=== PATIENT | female | born 1960 | race Caucasian/White ===

== ENCOUNTER 2020-07-29 16:47 | Emergency (ER) | payer MEDICARE, MEDICAID, SELFPAY ==
--- NOTE | ~2020-07-29 | XR_ITS ---
XR hip RT min 2V DATE: 07/29/2020 20:12 INDICATION: Patient passed out and fell on right hip. Right hip injury, pain TECHNIQUE: AP and lateral views COMPARISON: None FINDINGS: There is moderate right hip osteoarthritis. No fracture, dislocation, avascular necrosis or bone destruction is detected. Normal alignment at the pubic symphysis and sacroiliac joints. IMPRESSION: Moderate right hip osteoarthritis Reviewed, dictated and finalized at location A.
--- NOTE | ~2020-07-29 | XR_ITS ---
XR chest 2V DATE: 07/29/2020 17:15 INDICATION: Cough, shortness of breath. History of COPD and hypertension. TECHNIQUE: AP and lateral views COMPARISON: 09/24/2016 two-view chest and CT pulmonary scan FINDINGS: Normal heart size. Mild aortic tortuosity. No hilar or mediastinal enlargement. No pulmonary infiltrate or consolidation, pleural effusion or pulmonary vascular congestion or pneumo thorax. IMPRESSION: No active cardiopulmonary disease Reviewed, dictated and finalized at location A.
[2020-07-29 16:51] VITALS: BP 123/86; PULSE 88; PULSE 96; RESP 14; O2SAT 98
--- NOTE | 2020-07-29 16:56 | ECG_ITS ---
Measurements Intervals [place] Rate: 92 P: 45 WA: 156 QRS: -39 QRSD: 93 T: 46 QT: 366 QTc: 453 Interpretive Statements SINUS RHYTHM LEFT AXIS DEVIATION DELAYED PRECORDIAL R/S TRANSITION BORDERLINE T WAVE ABNORMALITY- ANTERIOR LEADS BORDERLINE ECG Electronically Signed On 07-30-2020 15:28:31 CDT by Parag Bridges D.O.
[2020-07-29 17:31] LABS: Basophils Percent Auto 0.8 % (0.2-1.2); Eosinophils Absolute Auto 0.1 K/mm3 (0-0.3); Eosinophils Percent Auto 1.5 % (0-4.4); Hematocrit 36.9 % (37.0-47.0); Hemoglobin 11.6 g/dL (12.0-15.0); Immature Granulocyte Absolute 0.02 K/mm3 (0.00-0.031); Immature Granulocyte Percent A 0.4 % (0-0.5); Lymphocytes Absolute Auto 1.37 K/mm3 (0.9-3.2); Lymphocytes Percent Auto 26.3 % (18.3-44.2); Mean Corpuscular HGB Conc 31.4 g/dl (32-36); Mean Corpuscular Hemoglobin 26.7 pg (26-34); Mean Platelet Volume 10.4 fl (7.4-10.4); Monocytes Absolute Auto 0.4 K/mm3 (0.1-0.6); Monocytes Percent Auto 8.5 % (2.6-8.5); Neutrophils Absolute Auto 3.3 K/mm3 (1.3-6.7); Neutrophils Percent Auto 62.5 % (45.5-73.1); Platelet Count Result 248 k/mm3 (150-375); Red Blood Count 4.34 M/mm3 (4.2-5.4); Red Cell Distribution Width 14.5 % (11.5-14.5); White Blood Count 5.2 K/mm3 (4.5-10.0)
[2020-07-29 17:47] LABS: Anion Gap 12 mmol/L (8-16); Blood Urea Nitrogen 18 mg/dL (7-17); Calcium 9.7 mg/dL (8.4-10.2); Carbon Dioxide 20 mmol/L (22-30); Chloride 103 mmol/L (98-107); Estimated CRCL calculation 56 ml/min; Estimated Glomerular Filt Rate 51; Glucose 111 mg/dL (65-105); Potassium 3.9 mmol/L (3.4-5.0); Sodium 135 mmol/L (137-145)
--- NOTE | 2020-07-29 19:01 | PC.NURSE ---
Called Charleen dash, added on BNP and Trop I 190
[2020-07-29 19:23] LABS: NT Pro B Type Natriuretic Pept 30 pg/mL (5-100); Troponin I < 0.012 ng/mL (0.000-0.034)
--- NOTE | 2020-07-29 20:00 | ED.SOB ---
HPI - SOB/Dyspnea General Chief Complaint: Shortness of Breath/Dyspnea Stated Complaint: sob/dizzy/fall Time Seen by Provider: 07/29/20 17:14 Source: patient and family Mode of arrival: ambulatory Limitations: no limitations History of Present Illness HPI Narrative: 59-year-old female Here after falling and injuring her right hip Patient states that she was getting kind of short of breath She used her albuterol inhaler but it was ineffective and she started to get dizzy Possibly, she was hyperventilating This caused her to sustain a ground-level fall landing on her right hip which is now sore She is able to move it and bear weight Her breathing is much better now as well, as is her dizziness Related Data Allergies Allergy/AdvReac Type Severity Reaction Status Date / Time aspirin Allergy Unknown Hives / Verified 07/29/20 19:17 Red Face Penicillins Allergy Unknown Unknown Verified 07/29/20 19:17 sulfamethoxazole Allergy Unknown Unknown Verified 07/29/20 19:17 trimethoprim Allergy Unknown Unknown Verified 07/29/20 19:17 Review of Systems Review of Systems: All systems reviewed & are unremarkable except as noted in HPI and below Constitutional: Constitutional: Reports no additional constitutional complaints, Denies chills, Denies fever(s), Denies headache(s) and Reports weakness Eyes: Eyes: Reports no additional eye complaints and Denies change in vision ENT: Reports dizziness, Denies headache(s) and Denies sore throat Cardiovascular: Cardiovascular: Denies chest pain and Denies dyspnea Respiratory: Respiratory: Denies cough, Reports dyspnea and Reports wheezing Gastrointestinal: Gastrointestinal: Denies abdominal pain, Denies diarrhea and Denies vomiting Genitourinary: Genitourinary: Denies urinary frequency and Denies dysuria Musculoskeletal: Musculoskeletal: Denies deformity, Reports arthralgias, Reports joint swelling and Denies numbness Integumentary/Breasts: Skin/Breast: Denies rash and Denies wounds Neurologic: Reports dizziness, Denies headache(s), Denies focal weakness and Reports numbness Psychiatric: Psychiatric: Reports no additional psychiatric complaints Endocrine: Endocrine: Reports no additional endocrine complaints Hematologic/Lymphatic: Hematologic/Lymphatic: Reports no additional hematologic/lymphatic complaints Allergic/Immunologic: Allergic/Immunologic: Reports no additional allergic/immunologic complaints Exam Const: General: cooperative, no acute distress and alert Orientation/consciousness: patient oriented x3 (alert) HENMT: Head: normal to inspection, normocephalic, atraumatic, no contusions and no hematomas Ears: external ears normal General nose exam: no epistaxis Eyes: Conjunctivae: conjunctivae normal EOM: EOMs intact bilaterally Neck: Neck: normal visual inspection, supple and no JVD Resp: Effort & Inspection: normal respiratory effort and not labored Auscultation: clear to auscultation bilaterally, no wheezes and other (BS =) Cardio: Rate: regular rate Rhythm: regular rhythm Heart sounds: no murmurs GI: GI Palp: Yes Soft to palpation and No Tenderness to palpation present (GI) Skin: General skin exam: normal color and no rashes or lesions noted Neuro: General: patient oriented x3 (alert) and moves all extremities Speech: normal speech Extrem: General: normal to inspection and no pedal edema Other: Right hip, full range of motion, no deformity, no shortening, no bruises, mildly tender laterally over trochanter Psych: Affect: normal affect Course Vital Signs Vital signs: Vital Signs Pulse Rate 96 07/29/20 16:51 Respiratory Rate 14 07/29/20 16:51 Blood Pressure 123/86 07/29/20 16:51 Pulse Oximetry 98 07/29/20 16:51 Pulse Rate 103 H 07/29/20 20:33 Respiratory Rate 14 07/29/20 20:33 Blood Pressure 114/71 07/29/20 20:17 Pulse Oximetry 99 07/29/20 20:17 MDM - SOB/Dyspnea Lab Data Result diagrams: 07/29/20 17:2
[2020-07-29 20:17] VITALS: BP 114/71; PULSE 102; RESP 20; O2SAT 99
[2020-07-29 20:24] VITALS: PULSE 104; RESP 19
[2020-07-29] MEDS: ALBUTEROL SULFATE NEB 2.5 MG/0.5 ML INH 5 MG INHALATION (20:24)
[2020-07-29] MEDS: IPRATROPIUM BR 0.02% INH SOLN 0.5 MG/2.5 ML VIAL INHALATION (20:24)
[2020-07-29 20:33] VITALS: PULSE 103; RESP 14
[2020-07-29 22:14] VITALS: BP 106/74; PULSE 91; RESP 22; TEMP 36.9; O2SAT 97
== END 2020-07-29 22:15 | disposition home or self-care (01) ==
PROVIDERS: Emergency Medicine; Emergency Provider Emergency Medicine; PCP Family Medicine
DX: S70.01XA Contusion of right hip, initial encounter (principal); J44.1 Chronic obstructive pulmonary disease with (acute) exacerbation; R94.31 Abnormal electrocardiogram [ECG] [EKG]; W19.XXXA Unspecified fall, initial encounter
CPT/HCPCS: 36415; 71046; 73502; 80048; 83880; 84484; 85025; 93005; 94640; 96374; 99284; J1100

== ENCOUNTER 2020-09-04 13:42 | Outpatient (CLI) | payer MEDICARE, MEDICAID, SELFPAY ==
--- NOTE | ~2020-09-04 | CT_ITS ---
EXAMINATION: CT lung screening DATE: 09/04/2020 14:05 INDICATION: Personal history of tobacco dependence, prior smoker TECHNIQUE: Computed tomography (CT) of the chest was performed without intravenous contrast. The dose -length product (DLP) was 303.02 mGy-cm. Automated exposure control and iterative reconstruction tech [email or web address] were employed. COMPARISON: None FINDINGS: There is mild emphysema. No suspicious pulmonary nodules are identified. There is mild atel ectasis of the lower lobes. No pathologically enlarged thoracic lymph nodes are identified. The heart size is normal. Calcified coronary artery atherosclerosis is noted. There is moderate thoracic spond ylosis. IMPRESSION: 1. Lung-RADS category 1: Negative. Continue annual screening with noncontrast low-dose chest CT in 12 months. Reviewed, dictated and finalized at location A. IMPRESSION: 1. Lung-RADS category 1: Negative. Continue annual screening with noncontrast l ow-dose chest CT in 12 months.
== END 2020-09-04 13:43 | disposition home or self-care (01) ==
LOC: ANHIMG 13:43
PROVIDERS: PCP Internal Medicine; Visit Provider Internal Medicine
DX: J44.9 Chronic obstructive pulmonary disease, unspecified (principal); Z87.891 Personal history of nicotine dependence
CPT/HCPCS: 71271

== ENCOUNTER 2020-09-11 10:40 | Outpatient (CLI) | payer MEDICARE, MEDICAID, SELFPAY ==
[2020-09-11 11:12] LABS: Cholesterol 250 mg/dL (0-200); HDL Direct 45 mg/dL; Triglycerides 186 mg/dL (<150)
[2020-09-11 11:14] LABS: Hemoglobin A1C 6.1 % (<5.7)
[2020-09-11 11:24] LABS: LDL Cholesterol Direct 164 mg/dL
[2020-09-11 11:43] LABS: Thyroid Stimulating Hormone 0.402 uIU/mL (0.465-4.680)
[2020-09-11 11:45] LABS: Iron 54 ug/dL (37-170)
[2020-09-11 11:51] LABS: Percent Iron Saturation 11 % (20-50)
[2020-09-11 12:32] LABS: Creatinine Urine 123.5 mg/dL
[2020-09-11 12:35] LABS: MALB Creatinine Ratio 24.3 mg/g (0-30)
== END 2020-09-11 10:41 | disposition home or self-care (01) ==
LOC: ANHLAB 10:43
PROVIDERS: PCP Internal Medicine; Visit Provider Internal Medicine
DX: D64.9 Anemia, unspecified (principal); E55.9 Vitamin D deficiency, unspecified; J44.9 Chronic obstructive pulmonary disease, unspecified; R73.01 Impaired fasting glucose; Z78.0 Asymptomatic menopausal state; E78.2 Mixed hyperlipidemia
CPT/HCPCS: 36415; 80061; 82043; 82306; 82728; 83036; 83540; 83550; 84443

== ENCOUNTER 2020-10-12 10:49 | Outpatient (CLI) | payer MEDICARE, MEDICAID, SELFPAY ==
[2020-10-12 11:49] LABS: Thyroid Stimulating Hormone 0.285 uIU/mL (0.465-4.680)
[2020-10-12 11:51] LABS: Free T4 Free Thyroxine 0.94 ng/mL (0.78-2.19)
== END 2020-10-12 10:50 | disposition home or self-care (01) ==
LOC: ANHLAB 10:53
PROVIDERS: PCP Internal Medicine; Visit Provider Internal Medicine
DX: E78.5 Hyperlipidemia, unspecified (principal); R79.89 Other specified abnormal findings of blood chemistry
CPT/HCPCS: 36415; 84439; 84443

== ENCOUNTER 2020-10-24 11:04 | Outpatient (CLI) | payer MEDICARE, MEDICAID, SELFPAY ==
[2020-10-24 12:11] LABS: Basophils Percent Auto 0.6 % (0.2-1.2); Eosinophils Absolute Auto 0.1 K/mm3 (0-0.3); Hematocrit 41.8 % (37.0-47.0); Hemoglobin 13.3 g/dL (12.0-15.0); Immature Granulocyte Absolute 0.02 K/mm3 (0.00-0.031); Immature Granulocyte Percent A 0.4 % (0-0.5); Lymphocytes Absolute Auto 1.05 K/mm3 (0.9-3.2); Mean Corpuscular HGB Conc 31.8 g/dl (32-36); Mean Corpuscular Hemoglobin 28.4 pg (26-34); Mean Corpuscular Volume 89.3 fl (80-100); Mean Platelet Volume 11.1 fl (7.4-10.4); Monocytes Absolute Auto 0.4 K/mm3 (0.1-0.6); Monocytes Percent Auto 7.2 % (2.6-8.5); Neutrophils Absolute Auto 3.5 K/mm3 (1.3-6.7); Neutrophils Percent Auto 69.8 % (45.5-73.1); Platelet Count Result 214 k/mm3 (150-375); Red Blood Count 4.68 M/mm3 (4.2-5.4); Red Cell Distribution Width 17.3 % (11.5-14.5)
[2020-10-24 12:39] LABS: Iron 127 ug/dL (37-170)
[2020-10-24 15:00] LABS: Percent Iron Saturation 34 % (20-50)
== END 2020-10-24 11:05 | disposition home or self-care (01) ==
PROVIDERS: PCP Internal Medicine; Visit Provider Internal Medicine
DX: D50.9 Iron deficiency anemia, unspecified (principal)
CPT/HCPCS: 36415; 82728; 83540; 83550; 85025

== ENCOUNTER 2020-11-20 10:29 | Outpatient (CLI) | payer MEDICARE, MEDICAID, SELFPAY ==
--- NOTE | ~2020-11-20 | US_ITS ---
EXAMINATION: US thyroid DATE: 11/20/2020 10:57 INDICATION: Unspecified abnormal findings of blood chemistry. TECHNIQUE: Multiple ultrasound images of the thyroid were obtained. COMPARISON: None. FINDINGS: The right thyroid lobe measures 3.6 x 2.1 x 2.1 cm. The left thyroid lobe measures 3.3 x 2.3 x 2.0 c m. In the right thyroid lobe, there is an 11 mm solid, very hypoechoic, [id number]-[id number] nodule with smooth margin without echogenic foci (TI-RADS TR4). In the left thyroid lobe, there is a 10 mm solid, hypoechoic, mpvqy-ejlv-[id number] nodule with ill-defined margin without echogenic foci (TR4). There are m ultiple subcentimeter nodules in the thyroid. IMPRESSION: 1. Multinodular goiter. Thyroid ultrasound is recommended in one year. Reviewed, dictated and finalized at location A.
== END 2020-11-20 10:30 | disposition home or self-care (01) ==
LOC: ANHIMG 10:33
PROVIDERS: PCP Internal Medicine; Visit Provider Internal Medicine
DX: R79.89 Other specified abnormal findings of blood chemistry (principal); E04.2 Nontoxic multinodular goiter
CPT/HCPCS: 76536

== ENCOUNTER → 2020-11-22 09:12 | Outpatient (CLI) | payer MEDICARE, MEDICAID, SELFPAY ==
[2020-11-22 18:09] LABS: SARS-CoV-2 RNA PCR Negative
== END ==
PROVIDERS: PCP Internal Medicine; Visit Provider Internal Medicine
DX: R68.89 Other general symptoms and signs (principal); Z20.822 Contact with and (suspected) exposure to COVID-19
CPT/HCPCS: C9803; U0003; U0005

== ENCOUNTER → 2020-12-26 02:02 | Outpatient (CLI) | payer MEDICARE, MEDICAID, SELFPAY ==
[2020-12-26 10:57] LABS: Influenza Control Positive
[2020-12-26 18:47] LABS: SARS-CoV-2 RNA PCR Negative
== END ==
PROVIDERS: PCP Internal Medicine; Visit Provider Internal Medicine
DX: R68.89 Other general symptoms and signs (principal); Z20.822 Contact with and (suspected) exposure to COVID-19
CPT/HCPCS: 87804; C9803; U0003; U0005

== ENCOUNTER 2021-02-15 08:36 | Outpatient (CLI) | payer MEDICARE, MEDICAID, SELFPAY ==
[2021-02-15 09:20] LABS: Alanine Aminotransferase 15 U/L (4-35); Albumin Level 4.7 g/dL (3.5-5.1); Alkaline Phosphatase 74 U/L (38-126); Anion Gap 9 mmol/L (8-16); Aspartate Amino Transferase 25 U/L (14-36); Bilirubin,Total 1.3 mg/dL (0.2-1.3); Blood Urea Nitrogen 13 mg/dL (7-17); Carbon Dioxide 30 mmol/L (22-30); Chloride 100 mmol/L (98-107); Cholesterol 187 mg/dL (0-200); Estimated Glomerular Filt Rate 57; Glucose 117 mg/dL (65-110); HDL Direct 59 mg/dL; Potassium 4.2 mmol/L (3.4-5.0); Sodium 139 mmol/L (137-145); Triglycerides 169 mg/dL (<150)
[2021-02-15 09:30] LABS: Iron 87 ug/dL (37-170)
[2021-02-15 09:31] LABS: LDL Cholesterol Direct 96 mg/dL
[2021-02-15 09:38] LABS: Hemoglobin A1C 6.1 % (<5.7)
[2021-02-15 09:39] LABS: Creatinine Urine 112.9 mg/dL; Percent Iron Saturation 21 % (20-50)
[2021-02-15 09:44] LABS: MALB Creatinine Ratio 8.9 mg/g (0-30)
== END 2021-02-15 08:37 | disposition home or self-care (01) ==
PROVIDERS: PCP Internal Medicine; Visit Provider Internal Medicine
DX: E78.2 Mixed hyperlipidemia (principal); E11.9 Type 2 diabetes mellitus without complications; G25.81 Restless legs syndrome
CPT/HCPCS: 36415; 80053; 80061; 82043; 82728; 83036; 83540; 83550

== ENCOUNTER 2021-02-27 13:20 | Emergency (ER) | payer MEDICARE, MEDICAID, SELFPAY ==
--- NOTE | ~2021-02-27 | CT_ITS ---
EXAMINATION: CT hip RT wo con EXAM DATE: 02/27/2021 14:44 INDICATION: Acute on chronic right hip pain, remote hsx fall. TECHNIQUE: Spiral CT hip RT wo con was performed without contrast. Axial, coronal and sagittal imag es were reviewed. The dose-length product (DLP) for this examination was 217.63 mGy-cm. The exposur e was tailored according to patient size (auto mA exposure control), and iterative reconstruction ( IR) was used as additional dose reduction technique. Correlation is made to x-ray same date. FINDINGS: No acute right hip fracture. There is moderate right hip primary osteoarthritis. There is b and of sclerosis along the humeral head, appearance is consistent with stage II avascular necrosis, n o subchondral collapse. Soft tissue is unremarkable. IMPRESSION: 1. Right hip stage II avascular necrosis. 2. Moderate osteoarthritis. Reviewed, dictated and finalized at location . T PRESS OPERATOR
--- NOTE | ~2021-02-27 | XR_ITS ---
EXAMINATION: XR hip RT 2V w AP pelvis EXAM DATE: 02/27/2021 13:58 INDICATION: right hip pain since december, also pain when bearing weight . TECHNIQUE: Right hip frontal, 'frog leg' projections for interpretation. Frontal projection pelvis. Comparison is made to prior examination from 07/29/2020. FINDINGS: Smooth right hip femoral head contour, no radiographic evidence of avascular necrosis. The re is moderate symmetric bilateral hip primary osteoarthritis. There are no acute fractures or disloc ations identified. There is no subcutaneous gas. The soft tissue is unremarkable. There are no ra diopaque foreign bodies. IMPRESSION: 1. XR hip RT 2V w AP pelvis exam without acute osseous findings. 2. Moderate symmetric hip osteoarthritis. Reviewed, dictated and finalized at location G. D NUTRITION MANAGER
[2021-02-27 13:24] VITALS: BP 152/94; PULSE 86; RESP 18; TEMP 36.8; O2SAT 99
--- NOTE | 2021-02-27 13:48 | ED.GENADULT ---
HPI - General Adult General Chief complaint: Extremity Injury, Lower Stated complaint: hip pain Time Seen by Provider: 02/27/21 13:32 Source: patient and RN notes reviewed Limitations: no limitations History of Present Illness HPI narrative: 50-year-old female presenting to the [facility] for evaluation of acute on chronic right hip pain. Patient states she has had multiple falls but denies any acute injury. Patient states she had a fall back in December causing her to have right hip pain. Patient states that the pain has persisted. Patient has been taking Tylenol for pain control but states that it is not helping as much. Patient does have physical therapy scheduled for the right hip pain. Related Data Home Medications Medication Instructions Recorded Confirmed tramadol 50 mg tablet 50 mg PO Q4H PRN 08/21/20 01/29/21 mecobalamin (vitamin B12) 1,000 1,000 mcg SUBLINGUAL DAILY 10/24/20 01/29/21 mcg disintegrating tablet,sublingual buspirone 5 mg tablet 5 mg PO TID tablet 01/29/21 01/29/21 psyllium husk-calcium 1 gram-60 mg 1 cap PO DAILY 01/29/21 01/29/21 capsule escitalopram oxalate 10 mg tablet 10 mg PO DAILY 02/28/21 Allergies Allergy/AdvReac Type Severity Reaction Status Date / Time aspirin Allergy Unknown Hives / Verified 02/27/21 13:36 Red Face Penicillins Allergy Unknown Unknown Verified 02/27/21 13:36 sulfamethoxazole Allergy Unknown Unknown Verified 02/27/21 13:36 trimethoprim Allergy Unknown Unknown Verified 02/27/21 13:36 codeine Allergy Unknown Verified 02/27/21 13:37 ibuprofen Allergy Unknown Verified 02/27/21 13:37 Review of Systems Review of Systems: CONSTITUTIONAL: Denies fever, chills, or sweats. EYES: Denies visual changes, redness, or discharge. ENT: Denies rhinorrhea, congestion, sore throat, or otalgia. CARDIOVASCULAR: Denies chest pain, palpitations, or edema. RESPIRATORY: Denies cough or dyspnea. GASTROINTESTINAL: Denies abdominal pain, nausea, vomiting, or diarrhea. GENITOURINARY: Denies dysuria or hematuria. SKIN: Denies rash or itching. MUSCULOSKELETAL: Right hip pain NEUROLOGIC: Denies headache, numbness, or weakness. [facility] Past Medical History Medical History Allergies Anxiety Arthritis Cancer Chest pain Difficulty breathing Difficulty sleeping Essential hypertension Hair changes Head trauma High blood pressure High cholesterol Hot flashes Painful joint Skin change Snoring Family History Family History Father Cancer Mother Hypertension Grandparent Acute alcohol abuse Social History Social History (Updated 01/29/21 @ 10:41 by Jo Oliveira) Smoking packs per day: 4 Smoking cigarettes per day: 80.0 Years smoked: 14 Smoking pack-years: 56.00 Smoking status: Former smoker Tobacco type: cigarettes Second hand tobacco smoke exposure: No Smoking end date: 02/09/14 Alcohol intake: current Drinks per week: 2 Alcohol use details: social Substance use: never Substance use type: does not use Spiritual care concerns: No Exam Narrative: APPEARANCE: Well appearing, no pain, no distress, well-nourished. HEAD: normocephalic, atraumatic. THROAT: Pharynx clear, no exudate. NECK: Supple. No adenopathy, no masses. RESPIRATORY: Airway patent, respirations nonlabored. Clear to auscultation bilaterally, no rales, rhonchi, wheezing. CARDIOVASCULAR: Regular rate and rhythm without murmurs rubs or gallops. ABDOMINAL: Soft, nontender, nondistended, normal bowel sounds MUSCULOSKELETAL: Right hip tenderness to palpation NEURO: Alert. Cranial nerves II through XII intact. Good gait. Good coordination SKIN: Warm, dry. Normal Color Course Course Emergency Course: Patient was updated on the results of her imaging. CT did show avascular necrosis. Patient was encouraged to continue to follow-up with her primary care physician
[2021-02-27] MEDS: HYDROcodone/acetaminophen (*CRX) 5-325 MG TABLET 1 TAB PO (14:28)
[2021-02-27 16:33] VITALS: BP 149/90; PULSE 874; RESP 18; O2SAT 99
== END 2021-02-27 16:35 | disposition home or self-care (01) ==
PROVIDERS: Emergency Provider Emergency Medicine; PCP Internal Medicine
DX: M87.9 Osteonecrosis, unspecified (principal); F41.9 Anxiety disorder, unspecified; M19.90 Unspecified osteoarthritis, unspecified site; I10 Essential (primary) hypertension; E78.5 Hyperlipidemia, unspecified
CPT/HCPCS: 73502; 73700; 99284; A9270

== ENCOUNTER 2021-05-12 20:12 | Emergency (ER) | payer MEDICARE, MEDICAID, SELFPAY ==
--- NOTE | ~2021-05-12 | CT_ITS ---
EXAMINATION: CT chest abdomen pelvis wo con DATE: 05/12/2021 22:11 INDICATION: Upper abdominal pain radiating to the back. TECHNIQUE: Computed tomography (CT) of the chest, abdomen, and pelvis was performed without intraveno us contrast. Automated exposure control and iterative reconstruction technique were employed. The dos e-length product was 930.13 mGy-cm. COMPARISON: Chest CT 09/04/2020 FINDINGS: CHEST CT: There is mild emphysema. There is mild atelectasis bilaterally. A calcified left lung nodule and calc ified left hilar lymph nodes are consistent with old adenomatous disease. No pleural effusion. The he art size is normal. There are coronary artery calcifications. No pericardial effusion. There is mild thoracic spondylosis. ABDOMEN/PELVIS CT: The liver is normal. There are gallstones in the gallbladder, which is normal in size. Calcifications in the spleen are consistent with old granulomatous disease. The pancreas and adrenal glands are nor mal. Calcifications at the meredith of the kidneys are likely vascular. There is a 5.3 cm fusiform aneury sm of infrarenal aorta. There is a left inguinal hernia containing fat. There is an anastomosis in th e sigmoid colon. There are no dilated loops of bowel. There are no pathologically enlarged lymph node s. There is no free intraperitoneal fluid. There is osteonecrosis in right femoral head. There is mod erate lumbar spondylosis. IMPRESSION: 1. 5.3 cm fusiform aneurysm of infrarenal aorta. Surgical consultation is recommended. 2. Cholelithiasis. Reviewed, dictated and finalized at location A. IMPRESSION: 1. 5.3 cm fusiform aneurysm of infrarenal aorta. Surgical consultation is recom mended. 2. Cholelithiasis.
[2021-05-12 20:15] VITALS: BP 141/66; PULSE 73; RESP 20; TEMP 36.5; O2SAT 100
[2021-05-12 20:25] VITALS: PULSE 79; RESP 16; O2SAT 99
[2021-05-12 20:30] VITALS: BP 113/72; PULSE 78; RESP 17; O2SAT 93
[2021-05-12 20:40] LABS: Eosinophils Absolute Auto 0.1 K/mm3 (0-0.3); Hematocrit 39.8 % (37.0-47.0); Hemoglobin 13.5 g/dL (12.0-15.0); Immature Granulocyte Absolute 0.01 K/mm3 (0.00-0.031); Immature Granulocyte Percent A 0.2 % (0-0.5); Lymphocytes Absolute Auto 1.45 K/mm3 (0.9-3.2); Lymphocytes Percent Auto 35.5 % (18.3-44.2); Mean Corpuscular HGB Conc 33.9 g/dl (32-36); Mean Corpuscular Hemoglobin 31.5 pg (26-34); Mean Platelet Volume 10.4 fl (7.4-10.4); Monocytes Absolute Auto 0.5 K/mm3 (0.1-0.6); Neutrophils Absolute Auto 2.1 K/mm3 (1.3-6.7); Neutrophils Percent Auto 50.3 % (45.5-73.1); Platelet Count Result 162 k/mm3 (150-375); Red Blood Count 4.28 M/mm3 (4.2-5.4); Red Cell Distribution Width 12.4 % (11.5-14.5); White Blood Count 4.1 K/mm3 (4.5-10.0)
--- NOTE | 2021-05-12 20:40 | ED.ABDPAIN ---
HPI - Abdominal Pain General Chief Complaint: Abdominal Pain Stated Complaint: RUQ pain Time Seen by Provider: 05/12/21 20:21 Source: patient Mode of arrival: ambulatory Limitations: no limitations History of Present Illness HPI narrative: This is a 60 year old female that presents to the ER for RUQ abdominal pain present over the last couple of days. Reports the pain is sharp and intermittent in nature. It radiates to her back. She has known history of aortic aneurysm for which she is following with a surgeon at [place]. She is currently undergoing preoperative tests to have this repaired. She was told on 1 of those tests that she has some gallstones. Denies fever, chest pain, shortness of breath, vomiting, dysuria, or hematuria. Related Data Home Medications Medication Instructions Recorded Confirmed tramadol 50 mg tablet 50 mg PO Q4H PRN 08/21/20 05/01/21 mecobalamin (vitamin B12) 1,000 1,000 mcg SUBLINGUAL DAILY 10/24/20 05/01/21 mcg disintegrating tablet,sublingual buspirone 5 mg tablet 5 mg PO TID tablet 01/29/21 05/01/21 escitalopram oxalate 10 mg tablet 10 mg PO DAILY 02/28/21 05/01/21 Allergies Allergy/AdvReac Type Severity Reaction Status Date / Time aspirin Allergy Unknown Hives / Verified 05/12/21 20:14 Red Face Penicillins Allergy Unknown Unknown Verified 05/12/21 20:14 sulfamethoxazole Allergy Unknown Unknown Verified 05/12/21 20:14 trimethoprim Allergy Unknown Unknown Verified 05/12/21 20:14 codeine Allergy Unknown Verified 05/12/21 20:14 ibuprofen Allergy Unknown Verified 05/12/21 20:14 Review of Systems Review of Systems: CONSTITUTIONAL: Denies fever CARDIOVASCULAR: Denies chest pain RESPIRATORY: Denies dyspnea. GASTROINTESTINAL: Reports abdominal pain. Denies nausea, vomiting, or diarrhea. GENITOURINARY: Denies dysuria or hematuria. All systems reviewed & are unremarkable except as noted in HPI and below PMFSH Past Medical History Medical History (Updated 05/12/21 @ 22:46 by Katrina Dyer PA-C) AA (aortic aneurysm) Allergies Anxiety Arthritis Cancer Chest pain Difficulty breathing Difficulty sleeping Essential hypertension Hair changes Head trauma High blood pressure High cholesterol Hot flashes Painful joint Skin change Snoring Family History Family History Father Cancer Mother Hypertension Grandparent Acute alcohol abuse Social History Social History Smoking packs per day: 4 Smoking cigarettes per day: 80.0 Years smoked: 14 Smoking pack-years: 56.00 Tobacco type: cigarettes Second hand tobacco smoke exposure: No Smoking end date: 02/09/14 Alcohol intake: current Drinks per week: 2 Alcohol use details: social Substance use: never Substance use type: does not use Spiritual care concerns: No Exam Narrative: GENERAL: Well-appearing, well-nourished, and in no acute distress. HEAD: Normocephalic, atraumatic. EYES: EOMI. CHEST: Clear to auscultation. No respiratory distress. No wheezes rales or rhonchi HEART: Regular rate and rhythm. No murmur heard. Normal peripheral pulses. ABDOMEN: Soft, nondistended, normal active bowel sounds. Tender to palpation in the right upper quadrant, without guarding EXTREMITIES: Normal range of motion. No edema. SKIN: Warm, dry, no rash. NEURO: No focal deficits. Alert and oriented x3. PSYCH: Normal mood and affect Course Vital Signs Vital signs: Vital Signs Temperature 97.7 F 05/12/21 20:15 Pulse Rate 73 05/12/21 20:15 Respiratory Rate 20 05/12/21 20:15 Blood Pressure 141/66 H 05/12/21 20:15 Pulse Oximetry 100 05/12/21 20:15 Temperature 97.7 F 05/12/21 20:15 Pulse Rate 78 05/12/21 20:30 Respiratory Rate 17 05/12/21 20:30 Blood Pressure 113/72 05/12/21 20:30 Pulse Oximetry 93 05/12/21 20:30 MDM - Abdominal Pain MDM Narrative Medical
[2021-05-12 20:52] LABS: Alanine Aminotransferase 18 U/L (4-35); Albumin Level 4.6 g/dL (3.5-5.1); Alkaline Phosphatase 69 U/L (38-126); Anion Gap 4 mmol/L (8-16); Aspartate Amino Transferase 30 U/L (14-36); Bilirubin,Total 1.2 mg/dL (0.2-1.3); Blood Urea Nitrogen 16 mg/dL (7-17); Calcium 9.2 mg/dL (8.4-10.2); Carbon Dioxide 30 mmol/L (22-30); Chloride 103 mmol/L (98-107); Estimated CRCL calculation 57 ml/min; Estimated Glomerular Filt Rate 57; Glucose 87 mg/dL (65-110); Lipase 80 U/L (23-300); Potassium 4.1 mmol/L (3.4-5.0); Sodium 137 mmol/L (137-145)
[2021-05-12] MEDS: ONDANSETRON INJ 4 MG/2 ML VIAL IV PUSH (21:06)
[2021-05-12] MEDS: MORPHINE SULFATE (*CRX) 2 MG/ML INJ IV PUSH (21:06)
[2021-05-12 22:48] LABS: Add Urine Microscopic? YES; Appearance Urine Cloudy (Clear); Bacteria Urine Trace /hpf; Bilirubin Urine Negative (Negative); Blood Urine Negative (Negative); Color Urine Yellow (Yellow); Glucose Urine UA Negative (Negative); Ketones Urine Negative (Negative); Leukocyte Esterase Ur Trace LEU/UL (Negative); Mucus Urine Rare /lpf; Nitrate Urine Negative (Negative); Protein Urine Negative (Negative); RBC Urine 0-2 /hpf (0-2); Squamous Epithelial Cell Urine Rare /hpf (Few); Urobilinogen Urine Negative mg/dL (<2.0)
[2021-05-12 23:34] VITALS: BP 98/68; PULSE 88; RESP 14; O2SAT 95
== END 2021-05-12 23:36 | disposition home or self-care (01) ==
PROVIDERS: Physician Assistant; Emergency Provider Emergency Medicine; PCP Internal Medicine
DX: R10.11 Right upper quadrant pain (principal); I71.4 Abdominal aortic aneurysm, without rupture; I10 Essential (primary) hypertension; E78.00 Pure hypercholesterolemia, unspecified; M19.90 Unspecified osteoarthritis, unspecified site; F41.9 Anxiety disorder, unspecified; K80.20 Calculus of gallbladder without cholecystitis without obstruction
CPT/HCPCS: 36415; 71250; 74176; 80053; 81001; 83690; 85025; 87086; 96365; 96375; 99284; J0131; J2270; J2405

== ENCOUNTER 2021-05-23 00:45 | Day surgery (SDC) | payer MEDICARE, MEDICAID, SELFPAY ==
--- NOTE | 2021-05-20 10:10 | PC.NURSE ---
Report to the Outpatient Waiting Room, entrance under the green pavilion located off [facility], at time _1300 on date __05/23/21 . OR Time: __1500 . - You and your visitor will be asked a series of questions to screen for COVID 19 for your protection. - A mask is required within the hospital. Preoperative COVID Testing Requirements: No COVID Test needed if: (proof is required; if not received patient will have Rapid Test prior to entry) - Patient has received COVID Vaccine at least 14 days prior to procedure date or - Patient has positive COVID test result within last 90 days of surgery date. COVID Test needed if above criteria is not met If not COVID vaccinated a COVID test must be conducted within 72 hours of surgery and patient is asked to isolate self from time of testing until procedure. You will go to the [facility] for your COVID testing. The [facility] is located at the corner of [address] from [facility]. You will only be called if COVID results are positive and your surgeon may reschedule your elective surgery date. Patients may have clear liquids (water, carbonated beverages, clear teas, apple juice) until 3 hours prior to surgery with a maximum of 20 ounces. - No food from midnight until time of surgery - Infants may have breast milk until 4 hours before surgery, infant formula 6 hours prior to surgery. - Children will be allowed to drink immediately following surgery. If applicable, please bring a bottle or sippy cup to assist with drinking. Juice, water, soda, and popsicles are readily available. For infants on formula, please bring formula the day of surgery. Pacifiers are allowed. Take the following medications with a SIP of water the morning of surgery: __BUSPIRONE,ESCITALOPRAM, Medications to discontinue per physician __VITAMIN D3 AND VITAMIN B12__3 DAYS PRE OP Date to take last dose___05/19/21 Please no make-up, nail turkmen, hairspray, perfume, deodorant, or body powder the day of surgery. No jewelry (including any body piercings) or valuables the day of surgery, leave them at home. Please take a shower or bath the night before, or the morning of, surgery with an antibacterial soap. Wear comfortable, loose fitting clothing. Children are encouraged to wear pajamas. - Jewelry must be removed prior to entering the operating room. Rings and piercings that are not removed may be cut off. - The hospital will not accept responsibility for valuables. - Please leave all valuables, including medications, at home the day of surgery. If you are going home after surgery, a licensed cdl truck driver must drive you home. - NO public transportation without another adult. - We recommend that an adult stay with you for 24 hours following discharge. - We also recommend that you do not drive, make important decision, drink alcoholic beverages, or take any drugs that were not prescribed by your health care provider for at least 24 hours after your discharge time. For Pediatric surgeries, we recommend two adults accompany the child home (only one inside the building at this time). One visitor will be allowed to accompany the patient into the hospital. Patients visitor will be instructed to remain with patient at all times or leave the building. We will allow the visitor to come back to the postoperative area when patient is ready. Follow any additional instructions given to you from your surgeon. Telephone instructions given to __PATIENT and asked if any additional questions and then verbalized understanding. Patient advised to call surgeon office or pre surgery nurse liaison [phone] if any additional questions.
[2021-05-20 10:15] VITALS: BMI 29.8
[2021-05-23] VITALS (7 sets, daily range): BP systolic 114–148; BP diastolic 58–94; PULSE 79–92; RESP 14–20; TEMP 36.3–36.7; O2SAT 92–100; BMI 29.9
[2021-05-23] MEDS: LACTATED RINGERS 1,000 ML 30 ML IV CONT (14:00)
--- NOTE | 2021-05-23 14:28 | WPDANESEPPF ---
Anes - Initial Pre Proc Eval Procedure: Operation Date: 05/23/21 15:00 Proposed Procedures p Extraction of Twelve Teeth, Numbers Three Through Fourteen - Bienvenido Rose DMD Date/Time: 05/23/21 14:28 Surgeon: Bienvenido Rose DMD Pre Op Diagnosis: infected teeth, dental caries Patient Data Age: 60 Gender: F Height: 1.68 m Weight: 84.3 kg Last Vital Signs Temp 36.7 C 05/23/21 13:20 Pulse 88 05/23/21 13:20 Resp 20 05/23/21 13:20 BP 114/78 05/23/21 13:20 Pulse Ox 96 05/23/21 13:20 Allergies Allergy/AdvReac Type Severity Reaction Status Date / Time iohexol Allergy Intermediate Hives Verified 05/23/21 13:23 [From contrast - CT, X-RAY] aspirin Allergy Unknown Hives / Verified 05/23/21 13:22 Red Face Penicillins Allergy Unknown HIVES AND Verified 05/23/21 13:22 RASH sulfamethoxazole Allergy Unknown Unknown Verified 05/23/21 13:22 trimethoprim Allergy Unknown Rash Verified 05/23/21 13:22 codeine Allergy Hives Verified 05/23/21 13:22 ibuprofen Allergy Hives Verified 05/23/21 13:22 Home Medications Medication Instructions Recorded Confirmed Type tramadol 50 mg tablet 50 mg PO Q4H PRN 08/21/20 05/23/21 History lancets 23 gauge #100 ea 09/13/20 05/01/21 Rx blood sugar diagnostic #100 ea 09/21/20 05/01/21 Rx blood-glucose meter #1 ea 09/21/20 05/01/21 Rx lancets #100 ea 09/21/20 05/01/21 Rx mecobalamin (vitamin B12) 1,000 1,000 mcg PO DAILY 10/24/20 05/23/21 History mcg disintegrating tablet,sublingual omeprazole 20 mg capsule,delayed 20 mg PO DAILY #90 cap 01/11/21 05/23/21 Rx release lisinopril 20 mg tablet 20 mg PO DAILY #90 tablet 01/23/21 05/23/21 Rx buspirone 5 mg tablet 5 mg PO TID tablet 01/29/21 05/23/21 History escitalopram oxalate 10 mg tablet 10 mg PO DAILY 02/28/21 05/23/21 History hydrocodone 5 mg-acetaminophen 325 1 tablet PO Q6H PRN 30 Days #120 05/01/21 05/20/21 Rx mg tablet tablet rosuvastatin 20 mg tablet 20 mg PO DAILY #90 tablet 05/02/21 05/23/21 Rx cholecalciferol (vitamin D3) 25 mcg PO DAILY 05/20/21 05/23/21 History Patient hx anesthesia problems: none Family hx anesthesia problems: none Results Review: All pre-operative results and documents have been reviewed as part of the pre-operative evaluation. [facility] Past Medical History Medical History AA (aortic aneurysm) Allergies Anxiety Arthritis Cancer Chest pain Difficulty breathing Difficulty sleeping Essential hypertension Hair changes Head trauma High blood pressure High cholesterol Hot flashes Painful joint Skin change Snoring Family History Family History Father Cancer Mother Hypertension Grandparent Acute alcohol abuse Social History Social History Smoking packs per day: 4 Smoking cigarettes per day: 80.0 Years smoked: 14 Smoking pack-years: 56.00 Smoking status: Former smoker Tobacco type: cigarettes Second hand tobacco smoke exposure: No Smoking end date: 02/09/14 Alcohol intake: current Drinks per week: 2 Alcohol use details: 2 DRINKS PER MONTH Substance use: never Substance use type: does not use Living arrangements: alone Spiritual care concerns: No Anes - Eval Final PreProcedure Day of Procedure 05/23/21 14:28 Patient weight: obese Heart: regular rate and rhythm Lungs: clear to auscultation Airway: Mallampati scale class II and special considerations poor dentition Neurological: alert and oriented Last oral intake: >/= 8 hours ASA classification: IV Emergent: no Anesthetic plan: proceed Anesthesia type and monitoring: general ETT and standard monitoring Results Review: All pre-operative results and documents have been reviewed as part of the pre-operative evaluation. Informed Consent: The patient's anesthetic plan and its attendant risks and benefits
--- NOTE | 2021-05-23 15:10 | WPDHPUPDATE1 ---
History and Physical Update Update Date/Time: 05/23/21 15:10 History and Physical has been reviewed, including an updated exam of the patient. There are NO changes in the patient's condition. Risks, benefits, and alternatives have been discussed and questions answered. Patient agrees to proceed with procedure.
--- NOTE | 2021-05-23 15:10 | PM.IMHP ---
H&P: HPI History of Present Illness Date/Time: 05/23/21 15:10 c/o bad teeth Chief Complaint: bad teeth PMFSH Past Medical History Medical History AA (aortic aneurysm) Allergies Anxiety Arthritis Cancer Chest pain Difficulty breathing Difficulty sleeping Essential hypertension Hair changes Head trauma High blood pressure High cholesterol Hot flashes Painful joint Skin change Snoring Family History Family History Father Cancer Mother Hypertension Grandparent Acute alcohol abuse Social History Social History Smoking packs per day: 4 Smoking cigarettes per day: 80.0 Years smoked: 14 Smoking pack-years: 56.00 Smoking status: Former smoker Tobacco type: cigarettes Second hand tobacco smoke exposure: No Smoking end date: 02/09/14 Alcohol intake: current Drinks per week: 2 Alcohol use details: 2 DRINKS PER MONTH Substance use: never Substance use type: does not use Living arrangements: alone Spiritual care concerns: No Meds Home Medications and Allergies Home Medications Medication Instructions Recorded Confirmed Type tramadol 50 mg tablet 50 mg PO Q4H PRN 08/21/20 05/23/21 History lancets 23 gauge #100 ea 09/13/20 05/01/21 Rx blood sugar diagnostic #100 ea 09/21/20 05/01/21 Rx blood-glucose meter #1 ea 09/21/20 05/01/21 Rx lancets #100 ea 09/21/20 05/01/21 Rx mecobalamin (vitamin B12) 1,000 1,000 mcg PO DAILY 10/24/20 05/23/21 History mcg disintegrating tablet,sublingual omeprazole 20 mg capsule,delayed 20 mg PO DAILY #90 cap 01/11/21 05/23/21 Rx release lisinopril 20 mg tablet 20 mg PO DAILY #90 tablet 01/23/21 05/23/21 Rx buspirone 5 mg tablet 5 mg PO TID tablet 01/29/21 05/23/21 History escitalopram oxalate 10 mg tablet 10 mg PO DAILY 02/28/21 05/23/21 History hydrocodone 5 mg-acetaminophen 325 1 tablet PO Q6H PRN 30 Days #120 05/01/21 05/20/21 Rx mg tablet tablet rosuvastatin 20 mg tablet 20 mg PO DAILY #90 tablet 05/02/21 05/23/21 Rx cholecalciferol (vitamin D3) 25 mcg PO DAILY 05/20/21 05/23/21 History Allergies Allergy/AdvReac Type Severity Reaction Status Date / Time iohexol Allergy Intermediate Hives Verified 05/23/21 13:23 [From contrast - CT, X-RAY] aspirin Allergy Unknown Hives / Verified 05/23/21 13:22 Red Face Penicillins Allergy Unknown HIVES AND Verified 05/23/21 13:22 RASH sulfamethoxazole Allergy Unknown Unknown Verified 05/23/21 13:22 trimethoprim Allergy Unknown Rash Verified 05/23/21 13:22 codeine Allergy Hives Verified 05/23/21 13:22 ibuprofen Allergy Hives Verified 05/23/21 13:22 Vital Signs Vital Signs - 24 hr 05/23/21 13:20 Temperature 36.7 C Pulse Rate 88 Respiratory Rate 20 Blood Pressure 114/78 Pulse Oximetry 96 Assessment and Plan Assessment and plan (1) Non-restorable tooth: Code(s): K08.89 - Other specified disorders of teeth and supporting structures Status: Acute Assessment and Plan: extract #3-14
[2021-05-23] MEDS: ceFAZolin 2 GM/D5W 50 ML 2 GM/50 ML BAG IVPB (15:14)
[2021-05-23] MEDS: OXYMETAZOLINE HCL 0.05% NAS 15 ML BTL (*BKC) 1 SPRAY NASAL (15:20)
[2021-05-23] MEDS: LIDOCAINE 2%-EPI (FOR DENTAL BLOCK) 1.7 ML CARTRIDGE INFILTRATE (15:41)
--- NOTE | 2021-05-23 15:44 | P.OPB_ITS ---
Procedure Note - Brief Procedure Note - Brief Date of procedure: 05/23/21 Pre-op diagnosis: infected teeth, dental caries Surgeon: Bienvenido Rose DMD Preoperative diagnosis non restore full dentition and gingival hypertrophy anterior mandible. Postop diagnosis same. Procedures surgical removal of teeth numbers 3 through 15. gingival plasty anterior mandible. Complications none. Estimated blood loss 10cc. General anesthesia and 5cc of 2% lidocaine with 100,000 epinephrine.Patient encountered in the operating room under the care of the Anesthesia Service to induce general anesthetic. Patient was draped in the usual manner for an intraoral surgical procedure. Local anesthetic administered. Oral cavity suctioned free of debris and throat pack placed. Fifteen blade used to make a sulcular incision in the maxilla. A full- thickness flap was elevated to the buccal. All teeth removed using elevator and forceps technique without complication. Minimal ostectomy was completed. Alveolar plasty was completed using rongeur. Gingival tissues reapproximated using 4 0 chromic gut suture in icontinuous fashion. In the midline of the anterior mandible the excess gingival tissue was excised with a 15 blade. Oral cavity suctioned free of debris and throat pack was removed. Gauze packs placed. Care the patient was turned to the anesthesia service who extubated the patient transferred recovery in stable condition.
== END 2021-05-23 17:30 | disposition home or self-care (01) ==
PROVIDERS: PCP Internal Medicine; Visit Provider Dentist
PROC: (CPT 41899; principal; 2021-05-23 15:00)
DX: K02.9 Dental caries, unspecified (principal); K08.89 Other specified disorders of teeth and supporting structures; I10 Essential (primary) hypertension; E78.00 Pure hypercholesterolemia, unspecified; F41.9 Anxiety disorder, unspecified; I71.4 Abdominal aortic aneurysm, without rupture; E66.9 Obesity, unspecified; Z68.30 Body mass index [BMI] 30.0-30.9, adult
CPT/HCPCS: D7240 ×13; A9270; J0330; J0690; J1100; J2405; J2704; J7120

== ENCOUNTER 2021-05-29 09:23 | Outpatient (CLI) | payer MEDICARE, MEDICAID, SELFPAY ==
--- NOTE | ~2021-05-29 | MM_ITS ---
EXAMINATION: MM screening tico BI w gary HISTORY: Screening mammogram TECHNIQUE: Craniocaudal and mediolateral oblique 3-D tomosynthesis images were obtained and synthetic 2-D images were generated. CAD analysis was submitted and interpreted. COMPARISON: No prior mammogram is available for comparison at this institution. BREAST PARENCHYMAL COMPOSITION: There are scattered areas of fibroglandular density. FINDINGS: Electronic monitor device is noted in the left. Occasional bilateral benign calcifications. There is no evidence of suspicious mass, calcification, o r architectural distortion to suggest malignancy in either breast. There has been no suspicious inter shoaib change. IMPRESSION: 1. No mammographic evidence of malignancy. 2. Recommend routine screening mammography in one year. BI-RADS Category 1: Negative Reviewed, dictated and finalized at location [facility].
== END 2021-05-29 09:24 | disposition home or self-care (01) ==
LOC: ANHIMG 09:24
PROVIDERS: PCP Internal Medicine; Visit Provider Internal Medicine
DX: Z12.31 Encounter for screening mammogram for malignant neoplasm of breast (principal)
CPT/HCPCS: 77063; 77067

== ENCOUNTER 2021-06-27 10:06 | Outpatient (CLI) | payer MEDICARE, MEDICAID, SELFPAY ==
--- NOTE | ~2021-06-27 | XR_ITS ---
EXAMINATION: XR shoulder LT min 2V INDICATION: Left shoulder pain TECHNIQUE: Four views of the left shoulder are submitted. COMPARISON: 07/29/2020 FINDINGS: Normal alignment. No fracture. There is moderate glenohumeral joint osteoarthritis. The acr omioclavicular joint is unremarkable. Soft tissues are unremarkable. IMPRESSION: 1. Moderate glenohumeral joint osteoarthritis without acute osseous abnormality. Reviewed, dictated and finalized at location [facility]. IMPRESSION: 1. Moderate glenohumeral joint osteoarthritis without acute osseous abnormality .
== END 2021-06-27 10:07 | disposition home or self-care (01) ==
PROVIDERS: PCP Internal Medicine; Visit Provider Internal Medicine
DX: M19.012 Primary osteoarthritis, left shoulder (principal)
CPT/HCPCS: 73030

== ENCOUNTER 2021-07-06 10:58 | Emergency (ER) | payer MEDICARE, MEDICAID, SELFPAY ==
--- NOTE | ~2021-07-06 | CT_ITS ---
EXAMINATION: CT brain wo con DATE: 07/06/2021 11:41 INDICATION: Transient confusion, alteration of awareness TECHNIQUE: Computed tomography (CT) of the head was performed without intravenous contrast. The mA wa s adjusted according to patient size. Iterative reconstruction technique was employed. Exam dose: 52 9.67 mGy-cm total exam DLP. COMPARISON: None FINDINGS: No intracranial mass lesion or hemorrhage. Small left basal ganglia chronic lacunar infarct s. Bilateral carotid siphon internal carotid artery calcifications. There is nonspecific diminished attenuation cerebral white matter, likely due to chronic small vessel ischemic changes. No intracranial mass lesion or hemorrhage, midline shift or mass effect. No subdural or epidural hematoma. No fracture or bone destruction of the cranial vault. The included mastoid air cells and paranasal si nuses are normally developed and aerated. IMPRESSION: Cerebral atherosclerosis and chronic small vessel ischemic changes of the cerebral white matter Left basal ganglia chronic lacunar infarcts No acute intracranial finding Reviewed, dictated and finalized at [facility]. Reviewed, dictated and finalized at location [facility].
--- NOTE | ~2021-07-06 | XR_ITS ---
XR chest 2V DATE: 07/06/2021 13:00 INDICATION: Abnormal EKG. Previous smoker. Confusion. TECHNIQUE: PA and lateral views COMPARISON: CTA chest abdomen pelvis FINDINGS: Normal heart size. Implanted left anterior chest wall machine quilt stuffer device. No hilar or m ediastinal enlargement. No pulmonary infiltrate or consolidation, pleural effusion or pulmonary vascu lar congestion or pneumothorax. IMPRESSION: No active cardiopulmonary disease Reviewed, dictated and finalized at location [facility].
[2021-07-06 11:04] VITALS: BP 115/62; PULSE 91; RESP 14; TEMP 36.5; O2SAT 96
[2021-07-06 11:15] VITALS: PULSE 90
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
[2021-07-06 11:30] VITALS: BP 126/62; PULSE 90; RESP 21; O2SAT 94
--- NOTE | 2021-07-06 11:30 | PC.NURSE ---
Pt to CT scan via stretcher at this time.
--- NOTE | 2021-07-06 11:37 | ECG_ITS ---
Measurements Intervals [place] Rate: 88 P: 39 [place]: 141 QRS: -33 QRSD: 92 T: 22 QT: 365 QTc: 444 Interpretive Statements SINUS RHYTHM LEFT AXIS DEVIATION POOR R WAVE PROGRESSION, ANTERIOR LEADS BORDERLINE T WAVE ABNORMALITY- ANTEROLATERAL LEADS BASELINE ARTIFACT- I, III, AVL BORDERLINE ECG Electronically Signed On 07-06-2021 16:01:17 CDT by Parag Bridges D.O.
[2021-07-06 11:56] LABS: Basophils Percent Auto 0.4 % (0.2-1.2); Eosinophils Absolute Auto 0.1 K/mm3 (0-0.3); Eosinophils Percent Auto 2.9 % (0-4.4); Hematocrit 36.3 % (37.0-47.0); Hemoglobin 12.2 g/dL (12.0-15.0); Immature Granulocyte Absolute 0.01 K/mm3 (0.00-0.031); Immature Granulocyte Percent A 0.4 % (0-0.5); Lymphocytes Absolute Auto 0.83 K/mm3 (0.9-3.2); Lymphocytes Percent Auto 30.5 % (18.3-44.2); Mean Corpuscular HGB Conc 33.6 g/dl (32-36); Mean Corpuscular Hemoglobin 31.4 pg (26-34); Mean Corpuscular Volume 93.3 fl (80-100); Mean Platelet Volume 10.2 fl (7.4-10.4); Monocytes Absolute Auto 0.3 K/mm3 (0.1-0.6); Monocytes Percent Auto 9.9 % (2.6-8.5); Neutrophils Absolute Auto 1.5 K/mm3 (1.3-6.7); Neutrophils Percent Auto 55.9 % (45.5-73.1); Platelet Count Result 148 k/mm3 (150-375); Red Blood Count 3.89 M/mm3 (4.2-5.4); Red Cell Distribution Width 12.8 % (11.5-14.5); White Blood Count 2.7 K/mm3 (4.5-10.0)
[2021-07-06 12:00] LABS: Appearance Urine Clear (Clear); Bilirubin Urine Negative (Negative); Blood Urine Negative (Negative); Color Urine Yellow (Yellow); Glucose Urine UA Negative (Negative); Ketones Urine Negative (Negative); Leukocyte Esterase Ur Negative LEU/UL (Negative); Nitrate Urine Negative (Negative); Protein Urine Negative (Negative); Urobilinogen Urine 0.2 mg/dL (<2.0)
[2021-07-06 12:07] LABS: Alanine Aminotransferase 35 U/L (6-35); Albumin Level 3.9 g/dL (3.5-5.1); Alkaline Phosphatase 71 U/L (38-126); Anion Gap 8 mmol/L (8-16); Aspartate Amino Transferase 31 U/L (14-36); Bilirubin,Total 1.5 mg/dL (0.2-1.3); Blood Urea Nitrogen 16 mg/dL (7-17); Carbon Dioxide 26 mmol/L (22-30); Chloride 104 mmol/L (98-107); Estimated CRCL calculation 81 ml/min; Estimated Glomerular Filt Rate > 60; Glucose 135 mg/dL (65-110); Potassium 3.8 mmol/L (3.4-5.0); Sodium 138 mmol/L (137-145)
[2021-07-06 12:11] LABS: Add Urine Microscopic? NO
[2021-07-06 12:20] LABS: Troponin I < 0.012 ng/mL (0.000-0.034)
[2021-07-06 13:22] VITALS: BP 136/88; PULSE 93; RESP 17; O2SAT 95
== END 2021-07-06 13:25 | disposition home or self-care (01) ==
PROVIDERS: Physician Assistant; Emergency Provider Emergency Medicine; PCP Internal Medicine
DX: D69.6 Thrombocytopenia, unspecified (principal); D64.9 Anemia, unspecified; D72.819 Decreased white blood cell count, unspecified; I10 Essential (primary) hypertension; E11.9 Type 2 diabetes mellitus without complications; E78.5 Hyperlipidemia, unspecified; F41.9 Anxiety disorder, unspecified; M19.90 Unspecified osteoarthritis, unspecified site; Z87.891 Personal history of nicotine dependence; I67.2 Cerebral atherosclerosis; R94.31 Abnormal electrocardiogram [ECG] [EKG]
CPT/HCPCS: 36415; 70450; 71046; 80053; 81003; 84484; 85025; 93005; 99284

== ENCOUNTER 2021-07-10 08:37 | Outpatient (CLI) | payer MEDICARE, MEDICAID, SELFPAY ==
[2021-07-10 08:58] LABS: Basophils Percent Auto 0.3 % (0.2-1.2); Eosinophils Absolute Auto 0.1 K/mm3 (0-0.3); Eosinophils Percent Auto 3.9 % (0-4.4); Hematocrit 37.1 % (37.0-47.0); Hemoglobin 12.7 g/dL (12.0-15.0); Immature Granulocyte Absolute 0.01 K/mm3 (0.00-0.031); Immature Granulocyte Percent A 0.3 % (0-0.5); Lymphocytes Absolute Auto 1.03 K/mm3 (0.9-3.2); Lymphocytes Percent Auto 28.8 % (18.3-44.2); Mean Corpuscular HGB Conc 34.2 g/dl (32-36); Mean Corpuscular Hemoglobin 31.4 pg (26-34); Mean Corpuscular Volume 91.8 fl (80-100); Monocytes Absolute Auto 0.4 K/mm3 (0.1-0.6); Neutrophils Percent Auto 54.7 % (45.5-73.1); Platelet Count Result 207 k/mm3 (150-375); Red Blood Count 4.04 M/mm3 (4.2-5.4); Red Cell Distribution Width 12.9 % (11.5-14.5); White Blood Count 3.6 K/mm3 (4.5-10.0)
[2021-07-10 09:06] LABS: Lactate Dehydrogenase 470 U/L (313-618)
[2021-07-10 09:39] LABS: Iron 84 ug/dL (37-170)
[2021-07-10 09:48] LABS: Percent Iron Saturation 21 % (20-50)
[2021-07-10 10:43] LABS: Folic Acid 7.6 ng/mL (2.76->20); Vitamin B12 > 1000.0 pg/mL (239-931)
== END 2021-07-10 08:38 | disposition home or self-care (01) ==
LOC: ANHLAB 08:37
PROVIDERS: PCP Internal Medicine; Visit Provider Internal Medicine
DX: D70.9 Neutropenia, unspecified (principal); Z87.891 Personal history of nicotine dependence; D50.9 Iron deficiency anemia, unspecified
CPT/HCPCS: 36415; 82607; 82728; 82746; 83540; 83550; 83615; 85025

== ENCOUNTER 2021-07-26 07:45 | Outpatient (CLI) | payer MEDICARE, MEDICAID, SELFPAY ==
--- NOTE | 2021-08-19 09:35 | WPDSLEEPSTUD ---
Sleep Study Date of Study: 07/26/21 Ordering Provider: Dayday Bain APRN Interpreting Physician: Jillian Brewer MD Sleep Study Type: Split Polysomnogram Height: 1.68 m Weight: 81.647 kg Body Mass Index: 29.0 Neck Circumference (inches): 16.5 [place]: 1 Reason for Sleep Study History of obstructive sleep apnea, needs to be re-tested Sleep History Edda Paulson is a 60 year old female With a history of obstructive sleep apnea on a sleep test in 2018, apnea-hypopnea index was 5.8. She has been on CPAP 7 cm with poor compliance because she says she cannot tolerate the CPAP. She wanted to be retested. She had a prior sleep test at [facility] and she had a CPAP machine. There is a family history with her brother using CPAP. She does not awaken from sleep feeling short of breath and she does not awaken at night with heartburn, belching or coughing. She rarely snores. She never snores loudly enough that others complain. She rarely has trouble sleeping with a cold. She does not wake up gasping for breath at night. She does not have breathing problems at night observed by others. She rarely sweats excessively night. She does not notice her heart pounding or beating irregularly at night. She does not fall asleep during the day and does not fall asleep involuntarily. She does not fall asleep while driving. She does not have loss of muscle tone with strong emotion. She does not have daytime difficulties due to excessive sleepiness. She does not feel paralyzed on waking or falling asleep. She does not have vivid dreamlike scenes upon awakening or falling asleep. She does not feel afraid to go to sleep. She rarely has nightmares. She rarely remembers her dreams. She rarely has racing thoughts. She frequently feels sad or depressed. She constantly has anxiety. She rarely has muscular tension. She constantly notices parts of her body jerking and she again attributes this to a stroke. She jerks at night, does not kick at night. According to her questionnaire. She does not have crawling and aching feelings in her legs. She does not have any kind of leg pain at night. She does not have morning jaw pain. She does not grind her teeth during sleep. She constantly is bothered by the pain during the day and awakened by pain at night. She does not wake up feeling stiff in the morning. She frequently wakes up with sore achy muscles and pain in the neck and spine. She has depression. She takes omeprazole. She has difficult family issues right now. Normal bedtime is between 9:00 p.m. and 10:00 p.m. falling asleep within an hour, waking every 1 or 2 hours to go to the kitchen get a snack use or laptop sometimes goes to the bathroom. She wakes the morning between 6 and 7:00 a.m.. Her weekend schedule is the same. She estimates getting between 3 and 4 hours of sleep at night. She does not take naps in the afternoon or evening. A short nap may be refreshing. She wakes feeling refreshed often. Habits: Tobacco quit 2014. Caffeine 3 servings a day. Alcohol 2 or 3 in a month, infrequently. No recreational drugs. [facility] Past Medical History Medical History AA (aortic aneurysm) Allergies Anxiety Arthritis Cancer Chest pain Difficulty breathing Difficulty sleeping Essential hypertension Hair changes Head trauma High blood pressure High cholesterol Hot flashes Painful joint Skin change Snoring Family History Family History Father Cancer Mother Hypertension Grandparent Acute alcohol abuse Social History Social History Smoking packs per day: 4 Smoking cigarettes per day: 80.0 Years smoked: 14 Smoking pack-years: 56.00 Smoking status: Former smoker Tobacco type: cigarettes Second hand tobacco smoke exposure: No Smoking end date:
[2021-08-21 12:01] VITALS: BMI 29.0
--- NOTE | 2022-01-07 12:55 | SLEEP ---
pt stated she is changed to Dr Jefferson. she called the md office several x's and could not get help.
== END 2021-07-27 06:47 | disposition home or self-care (01) ==
LOC: ANHCSM 07:49
PROVIDERS: PCP Family Medicine Sports Medicine; Visit Provider Nurse Practitioner Family
DX: G47.30 Sleep apnea, unspecified (principal); G47.33 Obstructive sleep apnea (adult) (pediatric); G25.81 Restless legs syndrome; G47.61 Periodic limb movement disorder
CPT/HCPCS: 95811

== ENCOUNTER 2021-08-07 09:25 | Emergency (ER) | payer MEDICARE, MEDICAID, SELFPAY ==
--- NOTE | ~2021-08-07 | US_ITS ---
EXAMINATION: US abdomen limited DATE: 08/07/2021 12:19 INDICATION: Right upper quadrant pain TECHNIQUE: Multiple grayscale and Doppler ultrasound images of the abdomen were obtained. COMPARISON: CT from today FINDINGS: The head, body, and tail of the pancreas are normal. The liver demonstrates increased echog enicity, heterogenous echotexture, and decreased through transmission. No surface nodularity. Normal hepatopetal flow in the main portal vein. Stones are present in the nondistended gallbladder. There i s no gallbladder wall thickening or pericholecystic fluid. The normal common bile duct measures 2 mm. There was no sonographic Robles sign. IMPRESSION: 1. Cholelithiasis without evidence of cholecystitis. 2. Diffuse hepatic steatosis. Reviewed, dictated and finalized at location [facility].
--- NOTE | ~2021-08-07 | CT_ITS ---
EXAMINATION: CT chest abdomen pelvis wo con DATE: 08/07/2021 10:08 INDICATION: Left chest and left lower quadrant pain TECHNIQUE: Transaxial computed tomographic images of the chest, abdomen, and pelvis were obtained wit hout intravenous contrast. The dose-length product (DLP) was 894.51 mGy-cm. Automated exposure contro l and iterative reconstruction technique were employed. COMPARISON: 05/12/2021 FINDINGS: CHEST CT: The lungs are free of acute opacities. There is mild emphysema. No pleural effusion or pneumothorax. Calcified pulmonary nodules and calcified left hilar lymph nodes are consistent with old granulomatou s disease. Mild atelectasis. No pathologically enlarged thoracic lymph nodes are identified. The hear t size is normal. A cardiac monitoring device is implanted in the medial subcutaneous tissues of the left anterior chest wall. Calcified coronary artery atherosclerosis is noted. There is mild thoracic spondylosis. ABDOMEN/PELVIS CT: Punctate calcifications in an otherwise normal spleen likely represent healed granulomatous disease. Stones are present in the nondistended gallbladder. The liver is diffusely low in attenuation when co mpared with the spleen, consistent with hepatic steatosis. The pancreas and adrenal glands are normal . Vascular calcifications are noted in the otherwise normal kidneys. There is a stable 5.3 cm fusifor m infrarenal abdominal aortic aneurysm. No pathologically enlarged abdominal or pelvic lymph nodes ar e identified. There is no free intraperitoneal gas or evidence of bowel obstruction. A surgical anast omosis is again noted in the sigmoid colon. There are bilateral inguinal hernias containing fat. Ther e is moderate lumbar spondylosis. IMPRESSION: 1. No CT correlate for the patient's symptoms. 2. Stable 5.3 cm fusiform infrarenal abdominal aortic aneurysm. 3. Cholelithiasis without evidence of cholecystitis. Reviewed, dictated and finalized at location [facility].
--- NOTE | ~2021-08-07 | XR_ITS ---
XR chest 2V DATE: 08/07/2021 09:53 INDICATION: Chest and abdominal pain TECHNIQUE: PA and lateral views COMPARISON: 07/06/2021 2 view chest FINDINGS: Electronic monitor device in the lower medial anterior left chest. Normal heart size. There is aortic tortuosity. No hilar or mediastinal enlargement. No pulmonary infiltrate or consolidation, pleural effusion or pulmonary vascular congestion or pneumo thorax is detected. Osteopenia. IMPRESSION: No active cardiopulmonary disease Reviewed, dictated and finalized at location [facility].
[2021-08-07 09:30] VITALS: BP 148/73; PULSE 75; RESP 17; TEMP 36.9; O2SAT 100
--- NOTE | 2021-08-07 09:34 | ECG_ITS ---
Measurements Intervals [place] Rate: 70 P: 48 [place]: 141 QRS: -22 QRSD: 94 T: 29 QT: 369 QTc: 399 Interpretive Statements SINUS RHYTHM BORDERLINE LEFT AXIS DEVIATION [QRS AXIS < -20] NONSPECIFIC T-WAVE ABNORMALITY COMPARED TO ECG 07/06/2021 12:12:27 NO SIGNIFICANT CHANGE Electronically Signed On 08-07-2021 12:45:11 CDT by Tamela Bland M.D.
[2021-08-07 09:35] VITALS: PULSE 79
--- NOTE | 2021-08-07 09:43 | ED.CHESTPAIN ---
HPI - Chest Pain General Chief Complaint: Chest Pain <KYLE Samayoa Last Filed: 08/07/21 17:47> Stated Complaint: AAA pain , was supposed to have sx 07/18 <KYLE Samayoa Last Filed: 08/07/21 17:47> Time Seen by Provider: 08/07/21 09:31 <KYLE Samayoa Last Filed: 08/07/21 17:47> History of Present Illness HPI narrative: Patient is a 60-year-old female with a history of 5.5 cm infrarenal AAA for evaluation of left upper abdominal pain and left lower chest pain.She states the pain began as a dull achy type pain about 3 days ago, but has increased in nature. Given the longevity of the pain, she called her primary care provider, who recommended ED evaluation. Patient had surgery scheduled earlier this month for repair of her aneurysm, although the surgery was delayed due to an episode where she was confused. At that time she was evaluated in the emergency department by me, her work-up was largely unremarkable aside from slightly neutropenia, which has since improved. Denies shortness of breath, nausea, vomiting, weakness, fevers, chills, diarrhea, constipation. <KYLE Samayoa Last Filed: 08/07/21 17:47> Related Data Home Medications: Home Medications Medication Instructions Recorded Confirmed buspirone 5 mg tablet 5 mg PO TID 01/29/21 05/23/21 cholecalciferol (vitamin D3) 25 25 mcg PO DAILY 05/20/21 05/23/21 mcg (1,000 unit) tablet <KYLE Samayoa Last Filed: 08/07/21 17:47> Allergies/Adverse Reactions: Allergies Allergy/AdvReac Type Severity Reaction Status Date / Time iohexol Allergy Intermediate Hives Verified 07/10/21 07:40 [From contrast - CT, X-RAY] aspirin Allergy Unknown Hives / Verified 07/10/21 07:40 Red Face Penicillins Allergy Unknown HIVES AND Verified 07/10/21 07:40 RASH sulfamethoxazole Allergy Unknown Unknown Verified 07/10/21 07:40 trimethoprim Allergy Unknown Rash Verified 07/10/21 07:40 codeine Allergy Hives Verified 07/10/21 07:40 ibuprofen Allergy Hives Verified 07/10/21 07:40 adhesive tape AdvReac Hives Verified 08/07/21 09:39 carbamazepine AdvReac Hives Verified 08/07/21 09:39 cephalexin AdvReac Hives Verified 08/07/21 09:39 hydrocortisone AdvReac Rash Verified 08/07/21 09:39 [From Hydrocortone Acetate] naproxen AdvReac Rash Verified 08/07/21 09:39 varenicline AdvReac Hives Verified 08/07/21 09:39 <Katrina Calderon PA-C - Last Filed: 08/07/21 17:47> Review of Systems Review of Systems: Gen: Denies fevers or chills Eyes: Denies eye pain or visual change ENT: Denies congestion Respiratory: Denies shortness of breath or cough CV: Denies chest pain or palpitations GI: Reports abdominal pain. Denies nausea, emesis or diarrhea denies burning, urgency, frequency or hematuria Musculoskeletal: Reports back pain. Denies muscle pain Neuro: Denies numbness, tingling, weakness or focal weakness Skin: Denies rash Except as documented, all other systems reviewed and negative <Katrina Calderon PA-C - Last Filed: 08/07/21 17:47> [facility] Past Medical History Medical History: Medical History AA (aortic aneurysm) Allergies Anxiety Arthritis Cancer Chest pain Difficulty breathing Difficulty sleeping Essential hypertension Hair changes Head trauma High blood pressure High cholesterol Hot flashes Painful joint Skin change Snoring <Katrina Calderon PA-C - Last Filed: 08/07/21 17:47> Family History Family History: Family History Father Cancer Mother Hypertension Grandparent Acute alcohol abuse <Katrina Calderon PA-C - Last Filed: 08/07/21 17:47> Social History Social History: Social History Smoking packs per day: 4 Smoking cigarettes per day:
[2021-08-07 09:47] LABS: Basophils Percent Auto 0.5 % (0.2-1.2); Eosinophils Absolute Auto 0.1 K/mm3 (0-0.3); Eosinophils Percent Auto 2.1 % (0-4.4); Hematocrit 38.1 % (37.0-47.0); Hemoglobin 12.8 g/dL (12.0-15.0); Immature Granulocyte Absolute 0.01 K/mm3 (0.00-0.031); Immature Granulocyte Percent A 0.2 % (0-0.5); Lymphocytes Absolute Auto 1.28 K/mm3 (0.9-3.2); Lymphocytes Percent Auto 29.6 % (18.3-44.2); Mean Corpuscular HGB Conc 33.6 g/dl (32-36); Mean Corpuscular Volume 92.3 fl (80-100); Mean Platelet Volume 10.7 fl (7.4-10.4); Monocytes Absolute Auto 0.4 K/mm3 (0.1-0.6); Monocytes Percent Auto 9.5 % (2.6-8.5); Neutrophils Absolute Auto 2.5 K/mm3 (1.3-6.7); Neutrophils Percent Auto 58.1 % (45.5-73.1); Platelet Count Result 160 k/mm3 (150-375); Red Blood Count 4.13 M/mm3 (4.2-5.4); Red Cell Distribution Width 12.9 % (11.5-14.5); White Blood Count 4.3 K/mm3 (4.5-10.0)
[2021-08-07 09:56] LABS: INR 1.1; Prothrombin Time 13.4 Seconds (11.1-14.7)
[2021-08-07 09:57] LABS: Partial Thromboplastin Time 27.4 SECONDS (22.3-36.8)
[2021-08-07 09:59] LABS: Alanine Aminotransferase 20 U/L (6-35); Albumin Level 4.5 g/dL (3.5-5.1); Alkaline Phosphatase 69 U/L (38-126); Anion Gap 9 mmol/L (8-16); Aspartate Amino Transferase 23 U/L (14-36); Blood Urea Nitrogen 15 mg/dL (7-17); Carbon Dioxide 26 mmol/L (22-30); Chloride 103 mmol/L (98-107); Estimated CRCL calculation 63 ml/min; Estimated Glomerular Filt Rate > 60; Glucose 103 mg/dL (65-110); Lipase 68 U/L (23-300); Potassium 3.9 mmol/L (3.4-5.0); Sodium 138 mmol/L (137-145)
[2021-08-07 10:09] LABS: Troponin I < 0.012 ng/mL (0.000-0.034)
[2021-08-07 10:22] VITALS: BP 141/87; PULSE 84; RESP 21; O2SAT 95
[2021-08-07 11:53] VITALS: BP 120/83; PULSE 79; RESP 16; O2SAT 95
[2021-08-07] MEDS: ACETAMINOPHEN 325 MG TABLET 650 MG PO (12:56)
[2021-08-07 13:16] LABS: Troponin I < 0.012 ng/mL (0.000-0.034)
[2021-08-07 14:06] VITALS: BP 105/73; PULSE 90; RESP 25; O2SAT 94
== END 2021-08-07 14:07 | disposition home or self-care (01) ==
PROVIDERS: Physician Assistant; Emergency Provider Emergency Medicine; PCP Family Medicine Sports Medicine
DX: R10.9 Unspecified abdominal pain (principal); F41.9 Anxiety disorder, unspecified; M19.90 Unspecified osteoarthritis, unspecified site; I10 Essential (primary) hypertension
CPT/HCPCS: 36415; 71046; 71250; 74176; 76705; 80053; 83690; 84484; 85025; 85610; 85730; 93005; 99284; A9270

== ENCOUNTER 2021-10-05 12:53 | Outpatient (CLI) | payer MEDICARE, MEDICAID, SELFPAY | END 2021-10-05 12:54 | disposition home or self-care (01) | LOC: ANHLAB 12:56 | PROVIDERS: PCP Family Medicine Sports Medicine; Visit Provider Nurse Practitioner Family | DX: D50.9 Iron deficiency anemia, unspecified (principal); D64.9 Anemia, unspecified; G25.81 Restless legs syndrome | CPT/HCPCS: 36415; 82728 ==

== ENCOUNTER 2021-10-30 19:08 | Emergency (ER) | payer MEDICARE, MEDICAID, SELFPAY ==
--- NOTE | ~2021-10-30 | CT_ITS ---
EXAMINATION: CT abdomen pelvis wo con DATE: 10/30/2021 22:34 INDICATION: left lower abdominal pain. Aortic repair October 08. TECHNIQUE: Computed tomography (CT) of the abdomen and pelvis was performed without intravenous contr ast. Automated exposure control and iterative reconstruction technique were employed. The dose-length product was 471.45 mGy-cm. COMPARISON: 08/07/2021. FINDINGS: Lower thorax: Dependent atelectasis/scarring. Aortic and coronary calcifications. Liver: Hepatomegaly. Biliary/Gallbladder: Partially collapsed gallbladder with gallstones. No surrounding inflammatory morro nge. No bile duct dilation. Pancreas: No mass or duct dilation. Spleen: Normal. Adrenals:No mass. Kidneys: Punctate nonobstructive calculi versus vascular calcification. Mild enlargement of the left kidney with perinephric stranding. Moderate caliectasis and pelviectasis. The left ureter traverses j ust anterior to and appears to be narrowed by the surgical site and fluid collection described below. GI tract: Status post colectomy. Uncomplicated appearing small bowel to large bowel anastomosis in th e pelvis. No small bowel dilation. Appendix not visualized Mesentery/Peritoneum: No ascites, mass, or free air. Retroperitoneum: Decreased size of the now 4.7 cm fusiform infrarenal abdominal aortic aneurysm with surrounding inflammatory change. Evidence of interval open repair of the aneurysm with graft placemen t. 2.4 cm x 4.1 cm x 3.5 cm retroperitoneal fluid collection extending directly off the left lateral aspect of the aorta at the level of the aneurysm and repair, with surrounding inflammatory change. Pelvis: The urinary bladder is mostly decompressed. Uterus is absent. Soft Tissues: Left lateral abdominal wall surgical incision. Bones: No acute osseous finding. IMPRESSION: Recent open abdominal aortic aneurysm repair with endograft placement. 4.1 cm retroperitoneal fluid c ollection projecting off the left lateral aspect of the aneurysm, which may represent postoperative i nfection or postoperative leak. Postoperative seroma considered less likely given the timing of surge ry. This process also narrows the left proximal ureter causing moderate proximal left hydronephrosis. Chronic and incidental findings detailed above. Reviewed, dictated and finalized at location [facility]. IMPRESSION: Recent open abdominal aortic aneurysm repair with endograft placement. 4.1 cm r etroperitoneal fluid collection projecting off the left lateral aspect of the a neurysm, which may represent postoperative infection or postoperative leak. Pos toperative seroma considered less likely given the timing of surgery. This proc ess also narrows the left proximal ureter causing moderate proximal left hydron ephrosis. Chronic and incidental findings detailed above.
[2021-10-30 19:35] VITALS: BP 122/63; PULSE 95; RESP 18; TEMP 37.1; O2SAT 98
[2021-10-30 20:50] VITALS: BP 126/73; PULSE 96; RESP 16; O2SAT 97
--- NOTE | 2021-10-30 20:56 | PC.NURSE ---
c/o LLQ pain and left groin pain since Thursday. Denies any Injury. Reports pain worse today and this makes it difficult to lift LLE. Denies any N/V/D
[2021-10-30 22:00] VITALS: BP 114/68; PULSE 88; RESP 16; TEMP 36.4; O2SAT 99
[2021-10-30 22:10] LABS: Basophils Percent Auto 0.8 % (0.2-1.2); Eosinophils Absolute Auto 0.1 K/mm3 (0-0.3); Eosinophils Percent Auto 3.4 % (0-4.4); Hematocrit 24.2 % (37.0-47.0); Hemoglobin 7.7 g/dL (12.0-15.0); Immature Granulocyte Absolute 0.01 K/mm3 (0.00-0.031); Immature Granulocyte Percent A 0.3 % (0-0.5); Lymphocytes Absolute Auto 1.05 K/mm3 (0.9-3.2); Lymphocytes Percent Auto 27.1 % (18.3-44.2); Mean Corpuscular HGB Conc 31.8 g/dl (32-36); Mean Corpuscular Hemoglobin 30.2 pg (26-34); Mean Corpuscular Volume 94.9 fl (80-100); Mean Platelet Volume 9.4 fl (7.4-10.4); Monocytes Absolute Auto 0.3 K/mm3 (0.1-0.6); Monocytes Percent Auto 8.8 % (2.6-8.5); Neutrophils Absolute Auto 2.3 K/mm3 (1.3-6.7); Neutrophils Percent Auto 59.6 % (45.5-73.1); Platelet Count Result 229 k/mm3 (150-375); Red Blood Count 2.55 M/mm3 (4.2-5.4); Red Cell Distribution Width 12.7 % (11.5-14.5); White Blood Count 3.9 K/mm3 (4.5-10.0)
[2021-10-30 22:15] LABS: Appearance Urine Clear (Clear); Bilirubin Urine Negative (Negative); Blood Urine Negative (Negative); Color Urine Yellow (Yellow); Glucose Urine UA Negative (Negative); Ketones Urine Negative (Negative); Leukocyte Esterase Ur Negative LEU/UL (Negative); Nitrate Urine Negative (Negative); Protein Urine Negative (Negative); Specific Grav Ur 1.025 (1.001-1.035); Urobilinogen Urine 0.2 mg/dL (<2.0); pH Urine 5.5 (5.0-9.0)
--- NOTE | 2021-10-30 22:16 | ED.GENADULT ---
HPI - General Adult General Chief complaint: Extremity Problem,Nontraumatic Stated complaint: L. leg pain. Time Seen by Provider: 10/30/21 21:38 Source: patient and RN notes reviewed Mode of arrival: ambulatory Limitations: no limitations History of Present Illness HPI narrative: This is a 60 year old female with history of AAA s/p repair 3 weeks ago who presents for evaluation of left abdominal pain and left groin pain for 4 days. Her pain has been constant and it hurts worse with walking. She denies leg numbness or tingling. She usually takes oxycodone 10 mg but she has missed 2 doses. She denies nausea, vomiting, fever or chills. Related Data Home Medications Medication Instructions Recorded Confirmed buspirone 5 mg tablet 5 mg PO TID 01/29/21 05/23/21 cholecalciferol (vitamin D3) 25 25 mcg PO DAILY 05/20/21 05/23/21 mcg (1,000 unit) tablet clopidogrel 75 mg tablet 75 mg PO DAILY 09/02/21 lamotrigine 25 mg tablet 25 mg PO DAILY 09/02/21 Allergies Allergy/AdvReac Type Severity Reaction Status Date / Time iohexol Allergy Intermediate Hives Verified 07/10/21 07:40 [From contrast - CT, X-RAY] aspirin Allergy Unknown Hives / Verified 07/10/21 07:40 Red Face Penicillins Allergy Unknown HIVES AND Verified 07/10/21 07:40 RASH sulfamethoxazole Allergy Unknown Unknown Verified 07/10/21 07:40 trimethoprim Allergy Unknown Rash Verified 07/10/21 07:40 codeine Allergy Hives Verified 07/10/21 07:40 ibuprofen Allergy Hives Verified 07/10/21 07:40 adhesive tape AdvReac Hives Verified 08/07/21 09:39 carbamazepine AdvReac Hives Verified 08/07/21 09:39 cephalexin AdvReac Hives Verified 08/07/21 09:39 hydrocortisone AdvReac Rash Verified 08/07/21 09:39 [From Hydrocortone Acetate] naproxen AdvReac Rash Verified 08/07/21 09:39 varenicline AdvReac Hives Verified 08/07/21 09:39 Review of Systems Review of Systems: All systems reviewed & are unremarkable except as noted in HPI and below Constitutional: Constitutional: Denies chills, Denies fatigue and Denies fever(s) Cardiovascular: Cardiovascular: Denies chest pain and Denies rapid heart rate Respiratory: Respiratory: Denies chest congestion, Denies cough and Denies dyspnea Gastrointestinal: Gastrointestinal: Reports abdominal pain, Denies nausea and Denies vomiting Musculoskeletal: Musculoskeletal: Reports back pain PMFSH Past Medical History Medical History AA (aortic aneurysm) Allergies Anxiety Arthritis Cancer Chest pain Difficulty breathing Difficulty sleeping Essential hypertension Hair changes Head trauma High blood pressure High cholesterol Hot flashes Painful joint Skin change Snoring Family History Family History Father Cancer Mother Hypertension Grandparent Acute alcohol abuse Social History Social History Smoking packs per day: 4 Smoking cigarettes per day: 80.0 Years smoked: 14 Smoking pack-years: 56.00 Smoking status: Former smoker Tobacco type: cigarettes Second hand tobacco smoke exposure: No Smoking end date: 02/09/14 Alcohol intake: current Drinks per week: 2 Alcohol use details: 2 DRINKS PER MONTH Substance use: never Substance use type: does not use Spiritual care concerns: No Exam Const: General: no acute distress and alert Nutritional Appearance: well nourished Orientation/consciousness: patient oriented x3 HENMT: Head: normal to inspection Face and sinus: normal facial exam Eyes: EOM: EOMs intact bilaterally Chest: Chest palpation & inspection: normal inspection of the chest Resp: Effort & Inspection: normal respiratory effort Cardio: Rate: regular rate Rhythm: regular rhythm Heart sounds: no murmurs GI: GI Palp: Yes Soft to palpation, Yes Tenderness to palpation present (GI),
[2021-10-30 22:21] LABS: INR 1.1
[2021-10-30 22:22] LABS: Partial Thromboplastin Time 27.7 SECONDS (22.3-36.8)
[2021-10-30 22:30] LABS: Alanine Aminotransferase 26 U/L (6-35); Albumin Level 3.6 g/dL (3.5-5.1); Alkaline Phosphatase 162 U/L (38-126); Anion Gap 11 mmol/L (8-16); Aspartate Amino Transferase 32 U/L (14-36); Bilirubin,Total 0.5 mg/dL (0.2-1.3); Blood Urea Nitrogen 16 mg/dL (7-17); Calcium 8.7 mg/dL (8.4-10.2); Carbon Dioxide 25 mmol/L (22-30); Chloride 103 mmol/L (98-107); Estimated CRCL calculation 72 ml/min; Estimated Glomerular Filt Rate > 60; Glucose 109 mg/dL (65-110); Potassium 3.5 mmol/L (3.4-5.0); Sodium 139 mmol/L (137-145)
[2021-10-30 22:31] LABS: Lactic Acid Reflex 0.9 mmol/L (0.7-2.0)
[2021-10-30 23:00] VITALS: BP 122/75; PULSE 89; RESP 16; TEMP 36.3; O2SAT 100
[2021-10-30 23:30] LABS: Add Urine Microscopic? NO
[2021-10-31 00:04] VITALS: BP 127/72; PULSE 87; RESP 16; TEMP 36.8; O2SAT 96
[2021-10-31] MEDS: methylPREDNISolone SOD SUCC 40 MG VIAL IV PUSH (00:13)
[2021-10-31 00:33] VITALS: BP 119/73; PULSE 89; RESP 16; O2SAT 97
== END 2021-10-31 01:00 | disposition short-term general hospital (02) ==
PROVIDERS: Emergency Provider General Practice; PCP Family Medicine Sports Medicine
DX: R10.32 Left lower quadrant pain (principal); D64.9 Anemia, unspecified; N13.30 Unspecified hydronephrosis; Z98.890 Other specified postprocedural states; I10 Essential (primary) hypertension; E78.00 Pure hypercholesterolemia, unspecified; F41.9 Anxiety disorder, unspecified; Z87.891 Personal history of nicotine dependence; Z86.79 Personal history of other diseases of the circulatory system; Z79.02 Long term (current) use of antithrombotics/antiplatelets
CPT/HCPCS: 36415; 74176; 80053; 81003; 83605; 85025; 85610; 85730; 86850; 86900; 86901; 96374; 99285; J2920

== ENCOUNTER 2022-02-14 10:55 | Emergency (ER) | payer MEDICARE, MEDICAID, SELFPAY ==
[2022-02-14] VITALS (15 sets, daily range): BP systolic 123–133; BP diastolic 61–84; PULSE 64–87; RESP 14–23; TEMP 36.9–37.1; O2SAT 93–99
--- NOTE | ~2022-02-14 | XR_ITS ---
Clinical Indication: Chest pain AP and lateral views of the chest: Comparison: 08/07/2021 Findings: Stable low-density nodular opacity at the right lung apex. Lungs are otherwise clear. Card iomediastinal silhouette is within normal limits. Bones and soft tissues are unremarkable. Impression: No acute abnormality. Stable low-density nodular opacity at the right upper lobe. No definite corresponding abnormality jermain ntified on CT dated 07/29/2021, therefore this is of doubtful clinical significance, and may represent an extrapulmonary density or other confluent of shadows. Reviewed, dictated and finalized at [facility]. FRAME BUILDER Impression: No acute abnormality. Stable low-density nodular opacity at the right upper lobe. No definite corresp onding abnormality identified on CT dated 07/29/2021, therefore this is of doubt ful clinical significance, and may represent an extrapulmonary density or other confluent of shadows.
--- NOTE | ~2022-02-14 | CT_ITS ---
Non-contrast CT scan of the Abdomen and Pelvis Clinical indication: Abdominal pain Technique: 2.5 mm axial scans were obtained through the abdomen and pelvis without intravenous or ora l contrast. Dose reduction technique was used on this scan by utilizing automated exposure control an d iterative reconstruction technique. The dose-length product (DLP) was 482.81 mGy-cm. COMPARISON: 10/30/2021 Findings: Images through the lung bases reveal stable focal left basilar scarring. Small bilateral nonobstructing renal stones are noted. No ureteral stone or hydronephrosis. The liver , spleen, pancreas, and adrenals appear normal. Small calcified gallstones are present. Abdominal aor tic graft present, with improved periaortic inflammatory changes, which are now minimal in degree. Pr eviously noted left para-aortic fluid collection is essentially completely resolved.. There is no evidence of bowel obstruction. Patient is status post near-total colectomy. Images through the pelvis were performed. There is no evidence of ascites or lymphadenopathy. Urinary bladder unremarkable. Patient is post hysterectomy. No pelvic mass seen. Impression: Abdominal aortic graft present, with significant interval improvement in periaortic inflammatory dumas ges since prior exam. Previous noted para-aortic fluid collection is resolved. Cholelithiasis. Small bilateral nonobstructing renal stones. Reviewed, dictated and finalized at location . ILE TRIMMER Impression: Abdominal aortic graft present, with significant interval improvement in periao rtic inflammatory changes since prior exam. Previous noted para-aortic fluid co llection is resolved. Cholelithiasis. Small bilateral nonobstructing renal stones.
--- NOTE | 2022-02-14 10:57 | ECG_ITS ---
Measurements Intervals [place] Rate: 81 P: 28 NM: 129 QRS: 80 QRSD: 93 T: 42 QT: 378 QTc: 439 Interpretive Statements SINUS RHYTHM DELAYED PRECORDIAL R/S TRANSITION BORDERLINE T WAVE ABNORMALITY- ANTERIOR LEADS BASELINE ARTIFACT- II, III, AVR, AVL, AVF, V1-V6 BORDERLINE ECG COMPARED TO ECG 08/07/2021 09:35:25 NO SIGNIFICANT CHANGES Electronically Signed On 02-14-2022 11:04:17 APPELLATE CONFEREE by Parag Bridges D.O.
[2022-02-14 11:14] LABS: Basophils Percent Auto 0.7 % (0.2-1.2); Eosinophils Absolute Auto 0.1 K/mm3 (0-0.3); Eosinophils Percent Auto 2.1 % (0-4.4); Hematocrit 36.6 % (37.0-47.0); Hemoglobin 12.2 g/dL (12.0-15.0); Immature Granulocyte Absolute 0.01 K/mm3 (0.00-0.031); Immature Granulocyte Percent A 0.2 % (0-0.5); Lymphocytes Absolute Auto 1.07 K/mm3 (0.9-3.2); Lymphocytes Percent Auto 24.9 % (18.3-44.2); Mean Corpuscular HGB Conc 33.3 g/dl (32-36); Mean Corpuscular Volume 86.9 fl (80-100); Mean Platelet Volume 10.1 fl (7.4-10.4); Monocytes Absolute Auto 0.3 K/mm3 (0.1-0.6); Neutrophils Absolute Auto 2.8 K/mm3 (1.3-6.7); Neutrophils Percent Auto 65.1 % (45.5-73.1); Platelet Count Result 165 k/mm3 (150-375); Red Blood Count 4.21 M/mm3 (4.2-5.4); Red Cell Distribution Width 15.6 % (11.5-14.5); White Blood Count 4.3 K/mm3 (4.5-10.0)
[2022-02-14 11:26] LABS: INR 1.4; Prothrombin Time 16.2 Seconds (11.1-14.7)
[2022-02-14 11:28] LABS: Alanine Aminotransferase 22 U/L (6-35); Albumin Level 4.6 g/dL (3.5-5.1); Alkaline Phosphatase 78 U/L (38-126); Anion Gap 6 mmol/L (8-16); Aspartate Amino Transferase 23 U/L (14-36); Blood Urea Nitrogen 17 mg/dL (7-17); Calcium 9.3 mg/dL (8.4-10.2); Carbon Dioxide 28 mmol/L (22-30); Chloride 103 mmol/L (98-107); Estimated CRCL calculation 77 ml/min; Estimated Glomerular Filt Rate > 60; Glucose 107 mg/dL (65-110); Lipase 66 U/L (23-300); Partial Thromboplastin Time 47.5 SECONDS (22.3-36.8); Potassium 3.9 mmol/L (3.4-5.0); Sodium 137 mmol/L (137-145)
[2022-02-14 11:39] LABS: Troponin I < 0.012 ng/mL (0.000-0.034)
--- NOTE | 2022-02-14 13:01 | ED.CHESTPAIN ---
HPI - Chest Pain General Chief Complaint: Chest Pain Stated Complaint: CP Time Seen by Provider: 02/14/22 12:03 History of Present Illness HPI narrative: Patient is a 61-year-old female with a history of recent AAA repair complicated by endoleak presenting with left sided abdominal pain. Patient states that this morning she had some left-sided chest and abdominal discomfort so she spoke with her PCP who recommended that she try to eat something. Patient states that she felt lightheaded around this time as well. States that she ate a small snack and then she developed severe left-sided abdominal and left lower chest pain. States she has never had pain like this before. Denies associated shortness of breath or diaphoresis. Denies nausea or vomiting. Reports she is having normal bowel movements. Denies leg swelling. No recent fevers or cough. Currently states that her pain is much improved. Related Data Home Medications Medication Instructions Recorded Confirmed buspirone 5 mg tablet 5 mg PO TID 01/29/21 05/23/21 cholecalciferol (vitamin D3) 25 25 mcg PO DAILY 05/20/21 05/23/21 mcg (1,000 unit) tablet clopidogrel 75 mg tablet 75 mg PO DAILY 09/02/21 lamotrigine 25 mg tablet 25 mg PO DAILY 09/02/21 Allergies Allergy/AdvReac Type Severity Reaction Status Date / Time iohexol Allergy Intermediate Hives Verified 02/14/22 11:53 [From contrast - CT, X-RAY] aspirin Allergy Unknown Hives / Verified 02/14/22 11:53 Red Face Penicillins Allergy Unknown HIVES AND Verified 02/14/22 11:53 RASH sulfamethoxazole Allergy Unknown Unknown Verified 02/14/22 11:53 trimethoprim Allergy Unknown Rash Verified 02/14/22 11:53 codeine Allergy Hives Verified 02/14/22 11:53 ibuprofen Allergy Hives Verified 02/14/22 11:53 adhesive tape AdvReac Hives Verified 02/14/22 11:53 carbamazepine AdvReac Hives Verified 02/14/22 11:53 cephalexin AdvReac Hives Verified 02/14/22 11:53 hydrocortisone AdvReac Rash Verified 02/14/22 11:53 [From Hydrocortone Acetate] naproxen AdvReac Rash Verified 02/14/22 11:53 varenicline AdvReac Hives Verified 02/14/22 11:53 Review of Systems Review of Systems: All systems reviewed & are unremarkable except as noted in HPI and below PMFSH Past Medical History Medical History AA (aortic aneurysm) Allergies Anxiety Arthritis Cancer Chest pain Difficulty breathing Difficulty sleeping Essential hypertension Hair changes Head trauma High blood pressure High cholesterol Hot flashes Painful joint Skin change Snoring Family History Family History Father Cancer Mother Hypertension Grandparent Acute alcohol abuse Social History Social History Smoking packs per day: 4 Smoking cigarettes per day: 80.0 Years smoked: 14 Smoking pack-years: 56.00 Smoking status: Former smoker Tobacco type: cigarettes Second hand tobacco smoke exposure: No Smoking end date: 02/09/14 Alcohol intake: current Drinks per week: 2 Alcohol use details: 2 DRINKS PER MONTH Substance use: never Substance use type: does not use Spiritual care concerns: No Exam Narrative: GENERAL: Well-appearing, well-nourished, and in no acute distress. HEAD: Normocephalic, atraumatic. EYES: PERRLA and EOMI. ENT: Nares clear, no rhinorrhea or epistaxis. Mucous membranes moist. NECK: Supple. CHEST: Clear to auscultation. No respiratory distress. HEART: Regular rate and rhythm. No murmur heard. Normal peripheral pulses. ABDOMEN: Soft,+ epigastric and left upper quadrant tenderness without guarding or rebound, nondistended EXTREMITIES: Normal range of motion. No edema. SKIN: Warm, dry, no rash. NEURO: No focal deficits. Alert and oriented x3. PSYCH: Normal mood and affect. Course Vital Signs Vital signs: Vital Signs T
[2022-02-14] MEDS: BELLADONNA ALK/PHENOB ELIX 10 ML, MAG HYDROX/ALUMINUM HYD/SIMETH 30 ML, LIDOCAINE HCL 2... PO (13:19)
[2022-02-14] MEDS: FAMOTIDINE 20 MG/2 ML VIAL IV PUSH (13:20)
[2022-02-14 13:48] LABS: Influenza A QL RT-PCR Negative (Negative); Influenza B QL RT-PCR Negative (Negative); SARS-CoV-2 RNA PCR Negative
[2022-02-14 14:37] LABS: Troponin I < 0.012 ng/mL (0.000-0.034)
== END 2022-02-14 17:00 | disposition home or self-care (01) ==
PROVIDERS: Emergency Medicine; Emergency Provider Emergency Medicine; PCP Family Medicine Sports Medicine
DX: R10.12 Left upper quadrant pain (principal); Z20.822 Contact with and (suspected) exposure to COVID-19; I10 Essential (primary) hypertension; E78.00 Pure hypercholesterolemia, unspecified; M19.90 Unspecified osteoarthritis, unspecified site; F41.9 Anxiety disorder, unspecified; Z87.891 Personal history of nicotine dependence; Z85.9 Personal history of malignant neoplasm, unspecified; R94.31 Abnormal electrocardiogram [ECG] [EKG]; K80.20 Calculus of gallbladder without cholecystitis without obstruction; N20.0 Calculus of kidney
CPT/HCPCS: 36415; 71046; 74176; 80053; 83690; 84484; 85025; 85610; 85730; 87636; 93005; 96374; 99284; A9270

== ENCOUNTER 2022-02-16 07:27 | Emergency (ER) | payer MEDICARE, MEDICAID, SELFPAY ==
[2022-02-16] VITALS (10 sets, daily range): BP systolic 125–139; BP diastolic 73–92; PULSE 65–83; RESP 16–24; TEMP 36.8; O2SAT 93–100
--- NOTE | ~2022-02-16 | CT_ITS ---
EXAMINATION: CT brain wo con DATE: 02/16/2022 08:18 INDICATION: Seizures. TECHNIQUE: Computed tomography (CT) of the head was performed without intravenous contrast. The dose- length product was 605.33 mGy-cm. Automated exposure control and iterative reconstruction technique w ere employed. COMPARISON: CT dated 07/06/2021 FINDINGS: Generalized atrophy. There are scattered mild periventricular and subcortical white matter changes, most likely related to small vessel ischemic disease (microangiopathy). There are chronic le ft lacunar infarctions. There is intracranial atherosclerosis. There is a chronic lacunar infarction of the right caudate nucleus. No acute intracranial hemorrhage, infarction, mass or mass effect. Para nasal sinuses are unremarkable. Mastoids are pneumatized. No depressed skull fractures. IMPRESSION: 1. No acute intracranial abnormality. 2: Chronic bilateral lacunar infarctions. Reviewed, dictated and finalized at location [facility]. GER [facility]AK[facility]
--- NOTE | ~2022-02-16 | XR_ITS ---
XR chest 1V portable 02/16/2022 08:14 Indication: Weakness and dyspnea. Procedure: AP portable chest Comparison: Comparison to multiple prior studies sequentially, with oldest reviewed study dated 08/07. Findings: Borderline heart size. Left basilar atelectasis. No focal pneumonia, edema, pleural effusio n or pneumothorax. No acute osseous abnormality. Impression: 1: Left basilar atelectasis. Reviewed, dictated and finalized at location [facility]. T CRIER Impression: 1: Left basilar atelectasis.
--- NOTE | 2022-02-16 07:44 | ECG_ITS ---
Measurements Intervals [place] Rate: 71 P: 9 NH: 119 QRS: -27 QRSD: 94 T: 29 QT: 382 QTc: 416 Interpretive Statements SINUS RHYTHM WITH SHORT NH INTERVAL BORDERLINE R WAVE PROGRESSION, ANTERIOR LEADS BORDERLINE T WAVE ABNORMALITY- ANTERIOR LEADS BORDERLINE ECG COMPARED TO ECG 02/14/2022 11:01:55 NO SIGNIFICANT CHANGES Electronically Signed On 02-16-2022 8:06:03 PIPE CAULKER by Parag Bridges D.O.
[2022-02-16 07:58] LABS: Glucose Point of Care 95 mg/dl (65-105)
--- NOTE | 2022-02-16 08:02 | ED.SEIZURE ---
HPI - Seizure General Chief Complaint: Seizure Stated Complaint: seizure activity Time Seen by Provider: 02/16/22 07:29 Source: patient, family (boyfriend), EMS, RN notes reviewed and old records reviewed Mode of arrival: EMS History of Present Illness HPI Narrative: This is a 61 year old female who presents for evaluation of seizure. Patient;s boyfriend reports that patient text him that she was having a hot spell. He states patient was having full body jerking when he got to her. He reports her eyes were open and she was moaning. This lasted approximately 2-5 minutes per EMS and boyfriend. He also states patient was groggy after seizure. On EMS arrival, patient was not postictal and she was alert and oriented x 3. Her boyfriend states that patient had similar seizure yesterday when she was in the ER at [facility]. She was in ER at [facility] yesterday for abdominal pain. She was also seen in ER at [facility] yesterday for abdominal pain. She had labs and CT ABdomen and pelvis yesterday . Patient is on lamictal for evaluation of staring spells, and her neurologist is located at [facility]. She states she is taking her medication daily. She is not aware of medication doses. 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 She is weaning off of buspar. She has been on lower dose for 2 days. She denies lack of sleep or drug use. She Seizure History: Yes Related Data Home Medications Medication Instructions Recorded Confirmed buspirone 5 mg tablet 5 mg PO TID 01/29/21 05/23/21 cholecalciferol (vitamin D3) 25 25 mcg PO DAILY 05/20/21 05/23/21 mcg (1,000 unit) tablet clopidogrel 75 mg tablet 75 mg PO DAILY 09/02/21 lamotrigine 25 mg tablet 25 mg PO DAILY 09/02/21 Allergies Allergy/AdvReac Type Severity Reaction Status Date / Time iohexol Allergy Intermediate Hives Verified 02/16/22 08:07 [From contrast - CT, X-RAY] aspirin Allergy Unknown Hives / Verified 02/16/22 07:44 Red Face Penicillins Allergy Unknown HIVES AND Verified 02/16/22 07:44 RASH sulfamethoxazole Allergy Unknown Unknown Verified 02/16/22 07:44 trimethoprim Allergy Unknown Rash Verified 02/16/22 07:44 codeine Allergy Hives Verified 02/16/22 07:44 ibuprofen Allergy Hives Verified 02/16/22 07:44 adhesive tape AdvReac Hives Verified 02/16/22 07:44 carbamazepine AdvReac Hives Verified 02/16/22 07:44 cephalexin AdvReac Hives Verified 02/16/22 07:44 hydrocortisone AdvReac Rash Verified 02/16/22 07:44 [From Hydrocortone Acetate] naproxen AdvReac Rash Verified 02/16/22 07:44 varenicline AdvReac Hives Verified 02/16/22 07:44 Review of Systems Constitutional: Constitutional: Denies weakness Cardiovascular: Cardiovascular: Denies syncope, Denies rapid heart rate, Denies irregular heart rhythm, Denies leg edema and Denies dyspnea Respiratory: Respiratory: Denies chest congestion, Denies hemoptysis, Denies excessive phlegm production and Denies dyspnea Gastrointestinal: Gastrointestinal: Reports abdominal pain, Denies hematochezia, Denies diarrhea and Denies vomiting Genitourinary: Genitourinary: Denies hematuria and Denies dysuria Musculoskeletal: Musculoskeletal: Denies joint swelling, Denies loss of height and Denies muscle weakness Neurologic: Denies syncope, Reports headache(s) (chronic), Denies focal weakness and Denies weakness PMFSH Past Medical History Medical History AA (aortic aneurysm) Allergies Anxiety Arthritis Cancer Chest pain Difficulty breathing Difficulty sleeping Essential hypertension Hair changes Head trauma High blood pressure High cholesterol Hot flashes Painful joint Skin change Snoring Family History Family History Father Cancer Mother Hypertension Grandparent Acute alcohol abuse Social History Social History (Reviewed 02/16/22 @ 08:11 by María
[2022-02-16 08:04] LABS: Basophils Percent Auto 0.7 % (0.2-1.2); Eosinophils Absolute Auto 0.1 K/mm3 (0-0.3); Eosinophils Percent Auto 2.3 % (0-4.4); Hematocrit 37.1 % (37.0-47.0); Hemoglobin 11.9 g/dL (12.0-15.0); Immature Granulocyte Absolute 0.01 K/mm3 (0.00-0.031); Immature Granulocyte Percent A 0.3 % (0-0.5); Lymphocytes Absolute Auto 0.94 K/mm3 (0.9-3.2); Lymphocytes Percent Auto 31.5 % (18.3-44.2); Mean Corpuscular HGB Conc 32.1 g/dl (32-36); Mean Corpuscular Hemoglobin 28.9 pg (26-34); Mean Platelet Volume 9.8 fl (7.4-10.4); Monocytes Absolute Auto 0.3 K/mm3 (0.1-0.6); Monocytes Percent Auto 9.4 % (2.6-8.5); Neutrophils Absolute Auto 1.7 K/mm3 (1.3-6.7); Neutrophils Percent Auto 55.8 % (45.5-73.1); Platelet Count Result 141 k/mm3 (150-375); Red Blood Count 4.12 M/mm3 (4.2-5.4); Red Cell Distribution Width 15.4 % (11.5-14.5)
[2022-02-16 08:39] LABS: Influenza A QL RT-PCR Negative (Negative); Influenza B QL RT-PCR Negative (Negative); SARS-CoV-2 RNA PCR Negative
[2022-02-16 08:50] LABS: Alanine Aminotransferase 18 U/L (6-35); Albumin Level 4.3 g/dL (3.5-5.1); Alkaline Phosphatase 70 U/L (38-126); Anion Gap 7 mmol/L (8-16); Aspartate Amino Transferase 21 U/L (14-36); Bilirubin,Total 1.1 mg/dL (0.2-1.3); Blood Urea Nitrogen 15 mg/dL (7-17); Calcium 8.7 mg/dL (8.4-10.2); Carbon Dioxide 29 mmol/L (22-30); Chloride 104 mmol/L (98-107); Estimated CRCL calculation 68 ml/min; Estimated Glomerular Filt Rate > 60; Glucose 98 mg/dL (65-110); Potassium 3.7 mmol/L (3.4-5.0); Sodium 140 mmol/L (137-145)
[2022-02-16 10:12] LABS: Add Urine Microscopic? YES; Appearance Urine Clear (Clear); Bilirubin Urine Negative (Negative); Blood Urine Negative (Negative); Color Urine Yellow (Yellow); Glucose Urine UA Negative (Negative); Ketones Urine Negative (Negative); Leukocyte Esterase Ur Trace LEU/UL (Negative); Nitrate Urine Negative (Negative); Protein Urine Negative (Negative); Specific Grav Ur >= 1.030 (1.001-1.035); Urobilinogen Urine 0.2 mg/dL (<2.0); pH Urine 5.5 (5.0-9.0)
[2022-02-16 10:27] LABS: Mucus Urine Few /lpf; RBC Urine 0-2 /hpf (0-2); Squamous Epithelial Cell Urine Rare /hpf (Few); WBC Urine 16-20 /hpf
--- NOTE | 2022-02-16 12:01 | PC.NURSE ---
visitor reports the pt shaking, stated that this precedes a seizure pt able to look at staff when seizing and answer questions
[2022-02-16] MEDS: LORazepam (*CRX) 0.5 MG TABLET PO (12:29)
[2022-02-16 22:30] LABS: Barbiturate Screen Urine Negative (Negative); Benzodiazepines Screen Urine Negative (Negative)
[2022-02-16 22:35] LABS: Amphetamine Screen Urine Negative (Negative); Cannabinoid Screen Urine Negative (Negative); Methadone Screen Urine Negative (Negative); Opiate Screen Urine Negative (Negative); Phencyclidine Screen Urine Negative (Negative)
[2022-02-16 22:47] LABS: Cocaine Screen Urine Negative (Negative)
== END 2022-02-16 12:40 | disposition home or self-care (01) ==
PROVIDERS: Emergency Provider General Practice; PCP Family Medicine Sports Medicine
DX: G40.909 Epilepsy, unspecified, not intractable, without status epilepticus (principal); N39.0 Urinary tract infection, site not specified; Z20.822 Contact with and (suspected) exposure to COVID-19; I10 Essential (primary) hypertension; E78.00 Pure hypercholesterolemia, unspecified; M19.90 Unspecified osteoarthritis, unspecified site; F41.9 Anxiety disorder, unspecified; Z85.9 Personal history of malignant neoplasm, unspecified; Z87.891 Personal history of nicotine dependence; R94.31 Abnormal electrocardiogram [ECG] [EKG]
CPT/HCPCS: 36415; 70450; 71045; 80053; 80307; 81001; 82948; 85025; 87086; 87636; 93005; 99284; A9270

== ENCOUNTER 2022-04-02 11:06 | Outpatient (RCR) | payer MEDICARE, MEDICAID, SELFPAY | END 2022-04-02 11:06 | disposition home or self-care (01) | LOC: ANHHIPT 11:06 | PROVIDERS: PCP Family Medicine Sports Medicine | DX: Z48.812 Encounter for surgical aftercare following surgery on the circulatory system (principal) | CPT/HCPCS: 99199 ==

== ENCOUNTER 2022-04-10 12:00 | Outpatient (RCR) | payer MEDICARE, MEDICAID, SELFPAY ==
--- NOTE | 2022-01-24 17:33 | BUPTOPEVAL1 ---
Assessment and note entered by Karishma Plata, PT Evaluation Information Assessment Status Evaluation Diagnosis Aortic Aneurysm repair 09/2021 Reported Pain Level Pain Score 6,8: Self Report Assessment PT Clinical Summary Pt presents w/ hx of multiple co-morbidities including but not limited to reported dementia, dance-like restless movements while sitting, and chronic severe pain of hip and back limiting her function. She presents to PT for strength and conditioning after cardiovascular surgery. Today she demos severely decreased gait and transitional mobility with sit<>stand she reports from pain more than fatigue. Her resting heart rate stays well within normal limits with gait testing with increase in respiratory rate within normal limites for conditioning activity. She shows globally weak BLEs with increased pain during testing as well. Pt will benefit from physical therapy to improve strength, endurance, and balance to improve safe functional mobility and ambulation. Plan of Care Interventions Gait Training,Hot Pack/Cold Pack,Neuro Re- education,Patient/Caregiver Educati,Therapeutic Activities,Therapeutic Exercise,Self-Care/Home Management,Wheelchair Training PT Services Indicated Yes Treatment Frequency and 1-2x/wk x 4 weeks Duration These treatments will address the objective and functional deficits as defined above. The patient will be advanced safely and appropriately in order for the patient to progress towards his/her prior level of function. Additional exercises will be introduced and as well as a comprehensive home exercise program upon discharge, if needed, ?to ensure carryover of functional gains achieved in the clinic. This treatment plan has been reviewed and agreement upon by the patient.
--- NOTE | 2022-02-05 15:01 | PCPTNOTE ---
Patient called & cancelled scheduled appointment this date due to having a fever.
--- NOTE | 2022-02-12 15:09 | PCPTNOTE ---
Late Entry for treatment session 01/29/22. Pt exercises and subjective pain levels taken at time of session. Assessment section was not completed at that time. Problems addressed: endurance, strength, ambulation, balance Subjective: Pt reports back feeling better than evaluation. Cont difficulty with her hip. Assessment: Modified treatment as needed due to pain. Improving gait and endurance. Was able to perform stairs today in modified fashion. Plan: Progress as tolerated Treatment units submitted to director to be added.
--- NOTE | 2022-02-14 17:13 | PCPTNOTE ---
Patient called & cancelled scheduled appointment this date due to feeling unwell with low blood pressure.
--- NOTE | 2022-02-19 15:50 | PCPTNOTE ---
Patient called & cancelled scheduled appointment this date due to illness
--- NOTE | 2022-03-05 16:32 | BUPTOPEVAL1 ---
Assessment and note entered by Karishma Plata, PT Evaluation Information Assessment Status Progress Report Diagnosis Aortic Aneurysm repair 09/2021 Subjective Information Reports has been to the ER multiple times since last visit for what she thought was seizures. But they think is actually panic attacks. Pt reports is now taking 2 Tyelenol every 6 hours instead of Tramadol for her pain Pt states she still can't dust, sweep, or mop, clean or do laundry Reported Pain Level Pain Score 7,0: Self Report Assessment PT Clinical Summary Pt demo's improved mobility compared to IE with decreased time for 5x sit to stand testing, improved distance with 2 min walk testing and with previous sessions increased length of time walking as well. Pt has not been consistent with therapy recently d/t co-morbidities including right hip pain and multiple trips to the ER reported for possible panic attacks. Pt opts to continue therapy and try to be more consistent with attendance as she noted improvements when going to therapy. Pt will benefit from cont therapy to address mobility deficits, and endurance to improve ADLs and ambulation. Plan of Care Interventions Gait Training,Neuro Re-education,Patient/Caregiver Educati,Therapeutic Activities,Therapeutic Exercise PT Services Indicated Yes Treatment Frequency and 2x weekly x 4 weeks Duration These treatments will address the objective and functional deficits as defined above. The patient will be advanced safely and appropriately in order for the patient to progress towards his/her prior level of function. Additional exercises will be introduced and as well as a comprehensive home exercise program upon discharge, if needed, ?to ensure carryover of functional gains achieved in the clinic. This treatment plan has been reviewed and agreement upon by the patient.
--- NOTE | 2022-03-13 13:24 | PCPTNOTE ---
Patient called & cancelled scheduled appointment this date due to illness.
--- NOTE | 2022-04-10 12:39 | PTOPPROG ---
Assessment and note entered by Aurea Arevalo DPT Evaluation Information Assessment Status Progress Diagnosis Aortic Aneurysm repair 09/2021 Subjective Information Pt has been feeling good with therapy. Thinks her strength, posture, everything has gotten better. Still difficulty with most activities at home but can do dishes and wipe down the table. Highest pain 9/10 and lowest 5/10. Continued difficulty with sleeping due to pain. Sees pain management . Will probably get shots that day. Thinks she would benefit from more therapy to continue working on her legs and walking. Assessment PT Clinical Summary The patient has made good progress in therapy. She reports improvements in her strength and mobility and has been able to return to some activity at home like washing dishes. She demonstrates improved 5 time sit to stand test and distance on the 2 minute walk test. Due to her progress but continued pain and functional limitations with cleaning activities at home, she will benfit from continued therapy to further reduce dysfunction. Plan of Care Interventions Electrical Stimulation,Gait Training,Hot Pack/Cold Pack,Manual Therapy,Neuro Re-education,Patient/ Caregiver Education,Therapeutic Activities, Therapeutic Exercise,Self-Care/Home Management PT Services Indicated Yes Treatment Frequency and 1-2 times a week for 4 weeks Duration These treatments will address the objective and functional deficits as defined above. The patient will be advanced safely and appropriately in order for the patient to progress towards his/her prior level of function. Additional exercises will be introduced and as well as a comprehensive home exercise program upon discharge, if needed, ?to ensure carryover of functional gains achieved in the clinic. This treatment plan has been reviewed and agreement upon by the patient.
--- NOTE | 2022-04-21 16:25 | PTOPDC ---
Assessment and note entered by Karishma Plata, PT Evaluation Information Assessment Status Discharge - Pt Not Present Diagnosis Aortic Aneurysm repair 09/2021 Subjective Information Pt has been feeling good with therapy. Thinks her strength, posture, everything has gotten better. Still difficulty with most activities at home but can do dishes and wipe down the table. Highest pain 9/10 and lowest 5/10. Continued difficulty with sleeping due to pain. Sees pain management . Will probably get shots that day. Thinks she would benefit from more therapy to continue working on her legs and walking.(from 04/10/22) Assessment PT Clinical Summary Pt reported is going to be in the hospital for a week. Upon return, she would like to change therapy focus to right hip pain with new prescription. Thus this plan of care is being discharged.
== END 2022-04-22 08:56 | disposition home or self-care (01) ==
LOC: ANHHIPT 12:00
PROVIDERS: PCP Family Medicine Sports Medicine
DX: Z48.812 Encounter for surgical aftercare following surgery on the circulatory system (principal)
CPT/HCPCS: 97110; 97112; 97116; 97163

== ENCOUNTER 2022-06-11 09:45 | Outpatient (RCR) | payer MEDICARE, MEDICAID, SELFPAY ==
--- NOTE | 2022-04-24 15:09 | PTOPEVAL1 ---
Assessment and note entered by Karishma Plata, PT Evaluation Information Assessment Status Evaluation Diagnosis right hip pain Onset about a year ago Subjective Information Pt partner states hip collapsed: about a year ago . Has not performed surgery. Was about to do surgery found out had a stroke, then also found aneurysm so had to have this surgery first. Recieved a steroid shot in the hip while was in therapy recently for aneurysm repair. Is scheduled to get another hip surgery 04/30/22 pain management at [facility]. Reported Pain Level Pain Score 8: Self Report Assessment PT Clinical Summary Pt presents for therapy for right hip pain. Significant other states her hip has collapsed and has yet to have surgery. Pt has had one steroid shot in her hip she reports didn't work . Pt appears to be self-limiting with formal testing this date, with objective signs of pain inconsistent with subjective reports of pain. Pt did fully participate in testing today however has had benefit from therapy in the past. PT will focus on pain control, ROM, strength, gait, and educaiton to empower patient to be the most functional she can. Plan of Care Interventions Electrical Stimulation,Gait Training,Hot Pack/Cold Pack,Manual Therapy,Neuro Re-education,Patient/ Caregiver Educati,Therapeutic Activities, Therapeutic Exercise PT Services Indicated Yes Treatment Frequency and 1-2 x weekly x 8 weeks Duration These treatments will address the objective and functional deficits as defined above. The patient will be advanced safely and appropriately in order for the patient to progress towards his/her prior level of function. Additional exercises will be introduced and as well as a comprehensive home exercise program upon discharge, if needed, ?to ensure carryover of functional gains achieved in the clinic. This treatment plan has been reviewed and agreement upon by the patient.
--- NOTE | 2022-05-16 11:10 | PTOPEVAL1 ---
Assessment and note entered by Karishma Plata, PT Assessment Status Progress Report Diagnosis right hip pain Onset about a year ago Subjective Information Pt recently went to the orthopeadic referral recently and reports she is unable to get hip replaced until she is seizure free for 6 months. 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 Pt reports feeling she has improved a lot . States used ice last night and this helped the pain. Pt reports is more dare-devil , feels like she can walk with her walker and do more. Pt reports is now able to sleep on right side 20- 25 min, does not use pillow between knees when sleeping Reports feeling 50% better overall. Reported Pain Level Pain Score 5: Self Report Assessment PT Clinical Summary Pt has met most of her therapy related goals, demo 's increased strength, ROM, and function with testing. Pt reports feeling 50% improved overall. Would like to continue improving her ROM, pain, and function with walking with a cane. Goals updated, wlil benefit from continued therapy to continue improving function and pain. Plan of Care Interventions Electrical Stimulation,Gait Training,Hot Pack/Cold Pack,Manual Therapy,Neuro Re-education,Patient/ Caregiver Educati,Therapeutic Activities, Therapeutic Exercise PT Services Indicated Yes Treatment Frequency and 1-2x weekly x 4 weeks Duration These treatments will address the objective and functional deficits as defined above. The patient will be advanced safely and appropriately in order for the patient to progress towards his/her prior level of function. Additional exercises will be introduced and as well as a comprehensive home exercise program upon discharge, if needed, ?to ensure carryover of functional gains achieved in the clinic. This treatment plan has been reviewed and agreement upon by the patient.
--- NOTE | 2022-06-11 14:33 | PTOPDC ---
Assessment and note entered by Karishma Plata, PT Assessment Status Discharge Diagnosis right hip pain Onset about a year ago Subjective Information Pt feels may wait longer to perform hip surgery Pt reports feeling she has improved a lot . Pt reports is more dare-devil , feels like she can walk with her walker and do more. Pt reports now feels about 75% better, some days can keep going. States she feels a lot more like myself , reports ability to get down on floor and clean now. Reported Pain Level Pain Score 0,0,0: Self Report Assessment PT Clinical Summary Pt reports feeling 75% improved overall. States feels much more like myself , reports ability to perform multiple activities including cleaning on the floor, walking with and without assistive devices more and much less pain. Pt feels confident in continuing her home exercises and advancing her activities independently. Was educated on left knee pain, if it continues when to return to [facility] to discuss options. Pt is thus being discharged from therapy at this time for having met functional goals, and plateauing in objective goals.
== END 2022-06-11 14:40 | disposition home or self-care (01) ==
LOC: ANHHIPT 09:45
PROVIDERS: PCP Family Medicine Sports Medicine
DX: M25.551 Pain in right hip (principal)
CPT/HCPCS: 97110; 97112; 97116

== ENCOUNTER 2023-06-25 08:45 | Outpatient (RCR) | payer MEDICARE, MEDICAID, SELFPAY ==
--- NOTE | 2023-04-24 17:23 | PTOPEVAL1 ---
Assessment and note entered by Karishma Plata, PT Evaluation Information Assessment Status Evaluation Diagnosis (M99.63) Osseous & subluxation stenosis; lumbar spine, (M25.551) Chronic pain right hip, (G89.29) other chronic pain Therapy conditions weakness other abnormalities of gait and mobility stiffness right hip abnormal posture Subjective Information Pt reports got a steroid shot in the hip last month and it didn't last long. Was a shot from Ortho doc, but is also seeing pain management who referred her to therapy for stenosis and hip pain. Has an MRI scheduled in May. Had been seen in therapy for same issues. States after therapy had 3-4 months of relief then started going backwards. States had been doing her exercises but was unable to continue because it hurt to bad. This has been about 10 months. States one fall about 2 months ago because of her quad cane foot getting caught. Most challenged with getting in and out of car, can't do dishes or housework, laundry, and is using shower chair, has to have help getting into and out of the tub. Difficulty bending over. Assessment PT Clinical Summary Pt presents with c/o right hip and low back pain that is chronic in nature. She reports she has had steroid shots and this has not helped. Pt has been to therapy previously for these issues with success at the time she reports lasted 3-4 months pain returned. Pt demo's independent ambulation with mildly reduced stance time on RLE, decreased passive ROM right hip with capsular end-feels, self-limited lumbar ROM secondary to pain, lumbopelvic core weakness. Pt will benefit from physical therapy to address deficits and improve pain and function. Plan of Care Interventions Electrical Stimulation,Gait Training,Hot Pack/Cold Pack,Manual Therapy,Mechanical Traction,Neuro Re- education,Therapeutic Activities,Therapeutic Exercise,Ultrasound PT Services Indicated Yes Treatment Frequency and 1-2x weekly x 12 visits Duration These treatments will address the objective and functional deficits as defined above. The patient will be advanced safely and appropriately in order for the patient to progress towards his/her prior level of function. Additional exercises will be introduced and as well as a comprehensive home exercise program upon discharge, if needed, ?to ensure carryover of funct
--- NOTE | 2023-04-24 17:27 | OPREHPOC ---
Outpatient Therapy Plan of Care This is a Multidisciplinary Plan of Care that may contain components documented by all disciplines (PT, OT, and ST.) PT Problem 1 PT Problem #1 Knowledge Deficit PT Goal 1 Goal Pt will be independent in HEP Pt will verbalize understanding of diagnosis and prognosis Target Visit 6 PT Problem 2 PT Problem #2 Pain PT Goal 1 Goal Pt will report greatest pain level at 7/10 or less to improve ADLs and activities Target Visit 6 PT Goal 2 Goal Pt will report greatest pain level at 3/10 or less to improve ADLs and activities Target Visit 12 PT Problem 3 PT Problem #3 Impaired Gait PT Goal 1 Goal Pt will demo normalized independent gait for 240 ft in 2 minutes. Target Visit 12 PT Problem 4 PT Problem #4 Impaired Strength PT Goal 1 Goal Pt will demo strength of 4/5 in hip extension and hip abduction Target Visit 12 PT Goal 2 Goal Pt will demo TRAM strength 4/5 to demo improved pelvic and lumbar stability Target Visit 12
--- NOTE | 2023-05-27 14:03 | PCPTNOTE ---
Patient did not arrive to appointment on time. Was called 30 minutes after appointment. Reached patient who was unaware of her appointment. Pt was reminded of attendance policy and this cancellation is her second. She was provided the date and time of her next appointment. Cont POC as able.
--- NOTE | 2023-05-28 07:50 | PCPTNOTE ---
Pt was not seen this date. PT call and confirmed next scheduled visit.
--- NOTE | 2023-06-04 09:58 | PCPTNOTE ---
Patient called & cancelled scheduled appointment this date due to her primary care telling her to stay off her hip until she sees ortho in June. Pt advised to call therapy after appointment to decide if will continue therapy at that time.
--- NOTE | 2023-06-25 09:49 | PTOPREEVAL ---
Assessment and note entered by Karishma Plata, PT Evaluation Information Assessment Status Re-evaluation Diagnosis (M99.63) Osseous & subluxation stenosis; lumbar spine, chronic pain R hip Therapy conditions pain in right hip pain in low back weakness abnormal postures oth. abnormalities of mobility and gait Subjective Information Pt reports She is getting an injection in left knee and right hip replacement November this year. Dr. Blanc is unaware at the moment of the total hip replacement was unable to let her know yesterday. 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 Reported Pain Level Pain Score 0,3: Self Report Pain Score 3,4,4: Self Report Assessment PT Clinical Summary Pt had initial evaluation 04/22/23 and due to multiple scheduling conflicts, communication and confusion issues, and conflicting medical professional instruction, pt has been unable to attend consistently with today being her third visit including evaluation. Pt verbalized wish to find a bus or other transport option to be more consistent and was provided a hand out for a local free medical transport. Pt reports her referring physician wants to continue therapy, but is also getting scheduled by ortho for a total hip replacement in November of this year. Pt states was going to inform her referring physician of this but the office was closed, is planning on letting her know today. Pt's evaluation today shows multiple deficits relating to her pain in her right hip including decreased joint ROM, decreased strength, decreased balance, decreased mobility, abnormal postures, and abnormal gait pattern. Pt will benefit from therapy to improve these deficits, prepare her body for optimal surgical outcomes, and improve her safety and functional independence while awaiting surgery. Plan of Care Interventions Electrical Stimulation,Gait Training,Hot Pack/Cold Pack,Manual Therapy,Neuro Re-education,Patient/ Caregiver Educati,Therapeutic Activities, Therapeutic Exercise,Self-Care/Home Management, Ultrasound,Other PT Services Indicated Yes Treatment Frequency and 1-2x weeks x 12 visits
--- NOTE | 2023-06-25 09:56 | OPREHPOC ---
Outpatient Therapy Plan of Care This is a Multidisciplinary Plan of Care that may contain components documented by all disciplines (PT, OT, and ST.) PT Problem 1 PT Problem #1 Knowledge Deficit PT Goal 1 Goal Pt will be independent in HEP Pt will verbalize understanding of diagnosis and prognosis Target Visit 6 Progress Not Met PT Problem 2 PT Problem #2 Pain PT Goal 1 Goal Pt will report greatest pain level at 7/10 or less to improve ADLs and activities Target Visit 6 Progress Not Met PT Goal 2 Goal Pt will report greatest pain level at 3/10 or less to improve ADLs and activities Target Visit 12 Progress Not Met PT Problem 3 PT Problem #3 Impaired Gait PT Goal 1 Goal Pt will demo normalized independent gait for 240 ft in 2 minutes. Target Visit 12 Progress Not Met PT Problem 4 PT Problem #4 Impaired Strength PT Goal 1 Goal Pt will demo strength of 4-/5 in hip extension and hip abduction Target Visit 12 Progress Not Met PT Goal 2 Goal Pt will demo strength of 4-/5 in hip extension and hip abduction Target Visit 12
--- NOTE | 2023-07-15 17:04 | PTOPDC ---
Assessment and note entered by Karishma Plata, PT Assessment Status Discharge - Pt Not Present Diagnosis (M99.63) Osseous & subluxation stenosis; lumbar spine, chronic pain R hip Subjective Information Pt reports She is getting an injection in left knee and right hip replacement November this year. Dr. Blanc is unaware at the moment of the total hip replacement was unable to let her know yesterday. 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 Assessment PT Clinical Summary Pt initially attended evaluation on 04/22/2023 for low back and right hip pain. She did not attend therapy again until 06/23/2023 after a series of no -call no-shows and cancellations. She had a reevaluation on 06/25/2023 which she attended and was reminded of the attendance policy she agreed to with starting therapy, reported understanding if she was to cancel of no-show again she would be discharged from therapy services. Pt cancelled her visit today within 3 hours of her appointment. Thus she is being discharged from therapy services due to non-attendance and violation of attendance policy.
== END 2023-07-17 15:50 | disposition home or self-care (01) ==
LOC: ANHHIPT 08:45
PROVIDERS: PCP Family Medicine Sports Medicine
DX: M25.551 Pain in right hip (principal); G89.29 Other chronic pain
CPT/HCPCS: 97110; 97140; 97163; 97750